=== PATIENT | male | born 1945 | race Caucasian/White ===

== ENCOUNTER → 2024-01-29 06:55 | Outpatient (REF) | payer OTHER, SELFPAY | LOC: RCS 06:55 | PROVIDERS: ATTENDING PHYSICIAN Internal Medicine Cardiovascular Disease; FAMILY PHYSICIAN Family Medicine | DX: I48.0 Paroxysmal atrial fibrillation (principal) | CPT/HCPCS: 93306 ==

== ENCOUNTER → 2024-02-07 10:22 | Outpatient (REF) | payer OTHER, SELFPAY | LOC: HWRAD 10:22 | PROVIDERS: ATTENDING PHYSICIAN Nurse Practitioner Family | DX: R10.11 Right upper quadrant pain (principal); R50.9 Fever, unspecified | CPT/HCPCS: 71046; 74177; Q9967 ==

== ENCOUNTER 2024-02-07 14:17 | Emergency (ER) | payer OTHER, SELFPAY ==
[2024-02-07 14:20] VITALS: BP 164/94
[2024-02-07 14:47] LABS: % Basophils 0.1 % (0-2); % Eosinophils 1.3 % (0-6); % Immature Granulocytes 0.4 % (0-0.5); % Lymphocytes 26.4 % (20.5-51.1); % Monocytes 6.1 % (1.7-9.3); % Neutrophils 65.7 % (42.2-75.2); Absolute Eosinophils 0.1 10^3/uL (0-0.7); Absolute Monocytes 0.5 10^3/uL (0.1-0.6); Hematocrit 40.1 % (39.0-52.0); Hemoglobin 13.4 g/dL (13.0-18.0); Mean Corp Hgb Conc. 33.4 g/dL (33.0-37.0); Mean Corpuscular Hgb 29.8 pg (27.0-31.0); Mean Corpuscular Volume 89.3 fL (80.0-94.0); Mean Platelet Volume 9.4 fL (7.4-10.4); Nucleated Red Blood Cells % 0 % (-); Platelet Count 286 10^3/uL (130-400); Red Blood Cell Count 4.49 10^6/uL (4.70-6.10); White Blood Cell Count 7.5 10^3/uL (4.8-10.8)
[2024-02-07 15:21] LABS: ALT (SGPT) 28 U/L (0-50); AST (SGOT) 25 U/L (17-59); Alkaline Phosphatase 99 U/L (38-126); Blood Urea Nitrogen 18 mg/dl (9-20); Calcium 9.4 mg/dl (8.4-10.2); Carbon Dioxide 28 mmol/L (22-30); Chloride 96 mmol/L (98-107); Glucose 150 mg/dl (70-99); Lipase 109 U/L (23-300); Sodium 135 mmol/L (135-145); Total Bilirubin 0.8 mg/dl (0.2-1.3); Total Protein 7.2 g/dl (6.3-8.2); eGFR > 60.00
--- NOTE | 2024-02-07 16:07 | ED.GENMED ---
History of Present Illness
General
Chief Complaint: Abdominal Symptoms
Source: patient
Exam Limitations: none
Time Seen by Provider: 02/07/24 16:05
Nursing documentation reviewed up to this point in time: agreed with
History of Present Illness
History of Present Illness:
78-year-old male with history of HTN, GERD, appendectomy, kidney stones called by his PCP and told to come to the ER as he had an outpatient abdominal CAT scan with IV and p.o. contrast earlier today and told he has gallbladder disease. He has had
waxing and waning RUQ pain since 01/04. Has low grade fevers (temp max 100.2) at night with intermittent chills. Also, intermittent diarrhea.
Saw UC on 01/05, given Bentyl and Bactrim. After finishing them, developed fever and chills again along with diarrhea. PCP put him on 10 days Cipro 1000 mg BID and he is on day 8. Also taking probiotic.
During all this, he was found to be in A fib and had echocardiogram last week
Past History
Past History
ED Past Medical History: GERD, HTN and Other (kidney stones)
ED Past Surgical History: Appendectomy and Orthopedic (Arthroscopic knee surgery)
Social History
Tobacco: Non-smoker
Alcohol: None
Drug: None
Personal:
Living: with family
Employment: Employed
Family History
Family History: Other (Noncontributory)
Review of Systems
Review of Systems
Allergies reviewed?: Yes
All Other Systems: ROS reviewed and negative except as documented in HPI and ROS
Constitutional: Reports fever (low grade intermittently, none today)
Respiratory: Denies trouble breathing
Cardiac: Denies chest pain
ABD/GI: Reports abdominal pain (past month waxing and waning, no pain at this time) and diarrhea; Denies nausea, vomiting, bloody stools or black stools
: Denies dysuria, frequency, difficulty voiding or urgency
Musculoskeletal: Denies edema
Skin: Reports no symptoms
Neurological: Reports no symptoms
Phy Exam
General Physical Exam
General Presentation: well appearing and no apparent distress
General age: appears stated age
General Skin: warm and dry
General Habitus: normal
General Mental: alert
General Hydration: appears well hydrated
Cardiovascular Exam
Cardiovascular Exam: regular rate/rhythm and no edema
Heart Sounds: normal
Pulmonary Exam
Pulmonary Exam: lungs clear
Gastrointestinal Exam
Gastrointestinal Exam: normal bowel sounds, non tender and soft (obese)
Neurological Exam
Neurological Exam: alert and oriented x3
Musculoskeletal Exam
Musculoskeletal Exam: no edema
Skin Exam
Skin Exam: normal color and warm/dry
Psychiatric Exam
Psychiatric Exam: normal mood/affect
Course
Orders/Labs/Results
Orders:
Orders
02/07/24 14:29
Complete Blood Count/With Diff Urgent
Comprehensive Metabolic Panel Urgent
Lipase Urgent
Abnormal Lab Results
02/07/24
14:29
RBC 4.49 L 10^6/uL
(4.70-6.10)
Chloride 96 L mmol/L
(98-107)
Glucose 150 H mg/dl
(70-99)
02/07/24 14:29
02/07/24 14:29
Vital Signs
Initial and Last Documented VS:
Initial Vital Signs
Temp Pulse Resp BP Pulse Ox
98.4 F 78 16 164/94 98
02/07/24 14:20 02/07/24 14:20 02/07/24 14:20 02/07/24 14:20 02/07/24 14:20
Last Documented Vital Signs
Temp Pulse Resp BP Pulse Ox
98.0 F 71 18 146/89 99
02/07/24 16:49 02/07/24 16:49 02/07/24 16:49 02/07/24 16:49 02/07/24 16:49
MDM/Problems Addressed
Differential Diagnosis Includes:
acute cholecystitis,
MDM/Problems Addressed:
78-year-old male with history of HTN, GERD, appendectomy, kidney stones called by his PCP and told to come to the ER as he had an outpatient abdominal CAT scan with IV and p.o. contrast earlier today and told he has gallbladder disease
CAT scan abdomen pelvis with p.o. and IV contrast done as an outpatient earlier today radiology report read: IMPRESSION:
1. Severe gallbladder wall thickening and adjacent inflammatory change. Radiopacity in the region of the gallbladder neck, likely representing a gallstone. Overall, findings are most suggestive of acute cholecystitis. No biliary ductal dilation is
appreciated.
2. Gallbladder wall asymmetrically thickened, and gallbladder neoplasm not excluded.
3. Right adrenal nodule, prior study, likely benign.
4. Bilateral nephrolithiasis without hydronephrosis.
4:00 PM
CBC unremarkable
CMP unremarkable
Lipase within normal limits
Consulted Dr. Jackson who agrees since pt is pain free, abdomen benign, labs normal, afebrile, on Eliquis, pt OK to go home and he will have someone call pt on Saturday (3 days) for appointment to set up surgery. Recommends continuing Eliquis as
earliest surgery may be Saturday (7 days).
Pt is very comfortable with this plan.
Return symptoms discussed
Pt ambulated out with normal gait at discharge
Chronic conditions affecting care: CAD
*Critical Care Note
Total Time (30-74mins, 75-104mins- exclusive of procedures): Not Applicable
ED Attending Note
-
Portions of this chart may have been created with voice recognition software.� Occasional wrong word or��sound alike� substitutions may have occurred due to the inherent limitations of voice recognition software.
Discharge Plan
Departure
Patient Disposition: Home (Routine Discharge)
Date of Disposition: 02/07/24
Time of Disposition: 16:50
Patient with high blood pressure during this ER visit?: No
Condition: Good
Discharge Problem:
Cholecystitis
Instructions: Gallstones (DC), Abdominal Pain
Prescriptions:
No Action
potassium gluconate 99 MG tablet
99 mg PO HS
ascorbic acid (vitamin C) [Vitamin C] 1,000 MG tablet
2,000 mg PO DAILY
B Complex Tablet Extended Release
1 tab PO DAILY Qty: 0
Centrum Silver 1 EACH tablet
1 ea PO DAILY
ciprofloxacin HCl 500 mg tablet
500 mg PO Q12H
losartan-hydrochlorothiazide 100-25 mg tablet
1 tab PO DAILY
metoprolol succinate 25 mg tablet extended release 24 hr
12.5 mg PO DAILY
azelastine 137 mcg (0.1 %) spray,non-aerosol
1 spray INTRANASAL BIDPRN PRN (Reason: congestion)
rosuvastatin 10 mg tablet
10 mg PO DAILY
Saccharomyces boulardii [Florastor] 250 mg Capsule
250 mg PO BID
Eliquis 5 mg tablet
5 mg PO BID
amlodipine 10 MG tablet
10 mg PO HS
metoprolol succinate 25 MG tablet extended release 24 hr
25 mg PO HS
Referrals:
Aristeo Jackson MD [Active] - Keep scheduled appt
Activity Restrictions/Additional Instructions:
As we discussed, since you are pain-free, your blood work is normal, and Dr. Jackson the surgeon is aware of your situation, I am going to discharge you today and he will have someone from his office call you Saturday for an appointment. He recommends
that you stay on your Eliquis until he discusses with you when your surgery can be done.
Return here immediately for worsening abdominal pain, fever above 100.5 not relieved with Tylenol, vomiting or feeling sicker in any way
Finish your Ciprofloxacin prescription
Interventions
Interventions:
*Risk Screen - Suicide Last Done: 02/07/24 16:46
*General Assessment Last Done: 02/07/24 14:20
*Neglect/Abuse Screening Last Done: 02/07/24 16:46
*ED COVID-19 Vaccine History Last Done: 02/07/24 14:20
*Nursing Disposition Last Done: 02/07/24 17:25
BC-Eshfog-Rquqtplmxy Assessment Last Done: 02/07/24 16:47
Discharge Date and Time
Discharge Date/Time: 02/07/24 18:04
Print Language: KAZAKH
[2024-02-07 16:45] VITALS: BMI 33.5
[2024-02-07 16:49] VITALS: BP 146/89
== END 2024-02-07 18:04 | disposition home or self-care (01) ==
LOC: EMR 14:17
PROVIDERS: Emergency Medicine; EMERGENCY PHYSICIAN Emergency Medicine; FAMILY PHYSICIAN Family Medicine
DX: K81.9 Cholecystitis, unspecified (principal); I10 Essential (primary) hypertension; K21.9 Gastro-esophageal reflux disease without esophagitis; R50.9 Fever, unspecified; R19.7 Diarrhea, unspecified; I25.10 Atherosclerotic heart disease of native coronary artery without angina pectoris; Z79.01 Long term (current) use of anticoagulants; Z87.442 Personal history of urinary calculi; Z90.49 Acquired absence of other specified parts of digestive tract
CPT/HCPCS: 99283; 71046; 74177; 80053; 83690; 85025; Q9967

== ENCOUNTER → 2024-02-18 08:26 | Outpatient (REF) | payer OTHER, SELFPAY | LOC: MRI 3T 08:26 | PROVIDERS: ATTENDING PHYSICIAN Surgery; FAMILY PHYSICIAN Family Medicine | DX: C23 Malignant neoplasm of gallbladder (principal) | CPT/HCPCS: 74181 ==

== ENCOUNTER 2024-03-09 13:25 | Inpatient (IN) | payer OTHER, SELFPAY ==
[2024-03-09] VITALS (15 sets, daily range): BP systolic 70–156; BP diastolic 62–93; BMI 32.3
[2024-03-09 09:31] LABS: Glucose - Point of Care 151 mg/dl (70-99)
[2024-03-09] MEDS: TYLENOL 1000 MG PO (09:34)
[2024-03-09] MEDS: IC GREEN 2.5 MG IV (09:51)
--- NOTE | 2024-03-09 12:06 | W.IMMPOSTOP ---
Surgical Immed Post Op Note
-
Primary Surgeon: Renetta
Assisting Surgeon: Tico
Chlorine Cells Operator: Yelena MARLOW
Pre-op Diagnosis: Chronic cholecystitis
Post-op Diagnosis: Same
Procedure Performed: Robot assisted laparoscopic subtotal cholecystectomy
Anesthesia Type: GETA
Specimen / Cultures: Bile for culture
Estimated Blood Loss: 35cc
Complications: None immediate
Operative Findings: Severely thickened wall and dense omental and colonic adhesions to anterior gallbladder wall. Gallbladder essentially encased in dense fibrotic scar. The thickness and tenacity of the adhesions prevented safe exposure of the
anterior wall. The fundus was opened and the large single stone was extracted and removed from the abdomen. 19fr schmitt drain into the gallbladder remnant.
--- NOTE | 2024-03-09 12:08 | OR.RPT ---
Addendum entered and electronically signed by Aristeo Jackson MD 03/09/24 14:32:
Addendum: Procedure: add modifier 22; Dr Doshi placed an employment assistant 5mm port and assisted with exposure and retraction.
Original Note:
Operative Report
Operative Report
Primary Surgeon: Renetta
Assisting Surgeon: Tico
Claims Specialist: Yelena MARLOW
Pre-op Diagnosis: Chronic cholecystitis
Post-op Diagnosis: Same
Procedure Performed: Robot assisted laparoscopic subtotal cholecystectomy
Anesthesia Type: GETA
Specimen / Cultures: Bile for culture
Estimated Blood Loss: 35cc
Complications: None immediate
Operative Findings: Severely thickened wall and dense omental and colonic adhesions to anterior gallbladder wall. Gallbladder essentially encased in dense fibrotic scar. The thickness and tenacity of the adhesions prevented safe exposure of the
anterior wall. The fundus was opened and the large single stone was extracted and removed from the abdomen. 19fr schmitt drain into the gallbladder remnant.
Date of Surgery:� 03/09/24
Indications: This 78M developed biliary colic with normal liver enzymes and without ductal dilation. He was on oral antibiotics for several weeks as an outpatient prior to surgery, with suspicion for smoldering chronic cholecystitis. Laparoscopic
cholecystectomy with robotic assist was elected.
Description of procedure: The patient was placed on the operating table in the supine position. General anesthesia was induced. A time-out was completed verifying correct patient, procedure, site, positioning, and special equipment prior to
beginning this procedure. An orogastric tube was placed. The abdomen was prepped and draped in the usual sterile fashion. A stab incision was made in left upper quadrant and the Veress needle was inserted. Proper position was confirmed by aspiration
and saline meniscus test. The abdomen was insufflated with carbon dioxide to a pressure of 12mmHg. The patient tolerated insufflation well.
A 8mm trocar was then inserted above the umbilicus. The laparoscope was inserted and the abdomen inspected. No injuries from initial trocar placement or Veress needle insertion were noted. Additional 8mm trocars were then inserted in the following
locations: two in the right lower quadrant and to the left of the umbilicus and just above. The abdomen was inspected and no abnormalities were found. The table was placed in the reverse Trendelenburg position with the right side up. The gallbladder
fundus was totally encased in dense scar tissue. The liver edge was identified and a top-down approach was begun. The posterior plane was obliterated with very thick fibrotic scar tissue. Seeral attempts were made to safely dissect out the
infundibulum but ultimately it was deemed unsafe to proceed in this manner. The fundus was then opened and a moderate amount of pus and bile drained. This was suctioned and irrigated. A large gallstone was extracted from the gallladder, placed into
an endoscopic retrieval bag and removed from the abdomen. The gallbladder was copiously irrigated until no further evidence of purulence was visible.
A 19fr syeda drain was placed into the gallbladder lumen and brought out through the lateral site and secured at the skin with 2-0 nylon suture.
The patient tolerated the procedure well and was taken to the postanesthesia care unit in stable condition.
The assistance of Yelena TURCIOS was required due to the complexity of the procedure. During the procedure she assisted with retraction, resection, and closure of the wound.
--- NOTE | 2024-03-09 12:13 | W.PN.UPDATE ---
Update Note
Progress Note Update
Plan for NPO @ [facility] for possible ERCP and stenting tomorrow. GI notified.
--- NOTE | 2024-03-09 12:27 | SUR.PHASEI ---
Rec'd unresponsive in bed with HOB elevated midfowlers oral airway in mg well
[2024-03-09 12:35] LABS: Glucose - Point of Care 187 mg/dl (70-99)
[2024-03-09] MEDS: DEMEROL 12.5 MG IV (12:35)
--- NOTE | 2024-03-09 12:36 | SUR.PHASEI ---
Airway out mg kc, calling out rolling around in bed oriented x 3 by RN reassured, to medicate
--- NOTE | 2024-03-09 12:49 | SUR.PHASEI ---
switching between agitated and snoring, Dr Boswell in, report to Duran Monge
--- NOTE | 2024-03-09 13:19 | SUR.PHASEI ---
Pt. RAAS of +2 agitated rolling around in bed and screaming. Pt. will open eyes to command but disoriented to time and situation. Pt. screaming of ABD pain with belly round firm and distended, MD Jackson aware and was at bedside earlier. MD Castelan
made aware of patient pain and request to hold off on narcotic with concern for patients mental status and increasing oxygen requirement. MD Castelan also request to hold off on CB coverage during this acute time. Pt. failed RA trial and was
titrated up to 6L NC to maintain SaO2 above 94%.
[2024-03-09] MEDS: DILAUDID 0.5 MG IV ×2 (13:42→14:23)
--- NOTE | 2024-03-09 15:18 | CON.GI ---
Addendum entered and electronically signed by Mindi Moore MD 03/09/24 20:36:
I saw and examined the patient.
The ASSISTANT DIRECTOR OF PLANT OPERATIONS's note was reviewed and I agree with the note.
Discussed with - Surgery. Patient with hx of chronic cholecystitis - had a laparoscopic fenestrated subtotal cholecystectomy due to severe adhesions. Drain was placed. GI was consulted for ERCP + sphincterotomy + stenting to reduce bile
leakage
plan
NPO
am labs
continue antibiotics as per surgery
pain mx as per surgery
continue to hold Eliquis
ERCP tomorrow - discussed with patient.
Original Note:
Consultation
-
Date/Time Consultation Requested: 03/09/24 1201
Date/Time Consultation Performed: 03/09/24 1530
Requesting Provider: Dr Jackson
Performing Provider: Dr Moore / Mary Dempsey PA-C
Reason for Consultation: s/p subtotal cholecystectomy/plan for ERCP
Medical History
Chief Complaint / HPI
Chief Complaint: abdominal pain, s/p subtotal CCY
History of Present Illness:
This is a 78 year old male with a past medical history of atrial fibrillation (on Eliquis, currently HELD), HTN, kidney stones, GERD, who underwent laparoscopic subtotal cholecystectomy today 03/09/[address] Jackson. Acute cholecystitis was noted on
CT scan done in the ER on 02/07/24 and patient was discharged at that time with plan for elective cholecystectomy. He was treated with oral antibiotics for several weeks as an outpatient prior to surgery, with concern for smoldering chronic
cholecystitis. Per the operative report, there were multiple adhesions present and the gallbladder was encased in dense fibrotic scar. A large single stone was extracted after incision of the fundus, with copious irrigation, and drain was
subsequently placed into the gallbladder remnant. We are asked to consult for possible ERCP for decompression to reduce bile leakage.
Patient complains of pain post-operatively, both in his abdomen and right shoulder. No nausea, vomiting, fever or chills. He has a history of GERD which is well-controlled on famotidine.
Past Medical History
Past Medical History: Other (atrial fibrillation, HTN, kidney stones, GERD)
Past Surgical History: Appendectomy, Cholecystectomy (laparascopic subtotal cholecystectomy 03/09/24) and Orthopedic (knee)
Social History
Tobacco: Non-Smoker
Alcohol: None
Drug: None
Personal:
Living: With Family
Employment: Employed
Family History
Family History: Other (No family history of GI malignancies)
Allergies / Home Medications
Allergy/AdvReac Type Severity Reaction Status Date / Time
No Known Allergies Allergy Verified 03/09/24 08:57
�Medication �Instructions �Recorded
potassium gluconate 600 mg (99 mg) 99 mg PO HS 10/17/15
tablet
ascorbic acid (vitamin C) 1,000 mg 2,000 mg PO DAILY 08/12/18
tablet (Vitamin C)
fipjyaft-cen-hotda acid 0.4 1 ea PO DAILY 08/12/18
mg-lycopene 300 mcg-lutein 250 mcg
tablet (Centrum Silver)
vitamin B complex 1 tab PO DAILY ##0 08/12/18
amlodipine 10 mg tablet 10 mg PO HS 02/07/24
apixaban 5 mg tablet (Eliquis) 5 mg PO BID 02/07/24
azelastine 137 mcg (0.1 %) nasal 1 spray intranasal BIDPRN PRN 02/07/24
spray congestion
losartan 100 1 tab PO DAILY 02/07/24
mg-hydrochlorothiazide 25 mg tablet
metoprolol succinate 25 mg 12.5 mg PO DAILY 02/07/24
tablet,extended release 24 hr
metoprolol succinate 25 mg 25 mg PO HS 02/07/24
tablet,extended release 24 hr
rosuvastatin 10 mg tablet 10 mg PO DAILY 02/07/24
acetaminophen 500 mg tablet 1,000 mg PO Q6H PRN pain 03/03/24
(Tylenol Extra Strength)
amoxicillin 875 mg-potassium 1 tab PO Q12H 03/03/24
clavulanate 125 mg tablet
ascorbic acid 125 mg-collagen, 1 cap PO BID 03/03/24
hydrolyzed 740 mg capsule
(Collagen Plus Vitamin C)
ttjvcfo-ilblgtiwj-ytba 1 tab PO BID 03/03/24
famotidine 20 mg tablet 20 mg PO QPM 03/03/24
fluticasone propionate 50 1 spray intranasal BID 03/03/24
mcg/actuation nasal
spray,suspension
glucosamine sulf dipot 1 cap PO DAILY 03/03/24
chlr,msm,chond 550 mg-C 30 mg-darya
1 mg capsule (Glucosamine
Chondroitin)
glucosamine sulfate 500 mg tablet 500 mg PO DAILY 03/03/24
(Glucosamine)
meloxicam 15 mg tablet 15 mg PO DAILY PRN pain 03/03/24
metformin 500 mg tablet 750 mg PO .DINNER 03/03/24
Review of Systems
-
History Source: Patient
All other systems: A 12 pt ROS was Negative except as stated above in HPI
Vital Signs
Temp Pulse Resp BP Pulse Ox
97.6 F 81 18 150/78 95
03/09/24 15:05 03/09/24 15:05 03/09/24 15:05 03/09/24 15:05 03/09/24 15:05
Physical Exam
Exam
General: Well Developed, Well Nourished and Pain
Respiratory: Clear
Cardiac: Regular Rhythm
GI: Soft, Non Distended, Normal Bowel Sounds and Other (+surgical drain in place in the right upper quadrant, incisions are clean/dry/without evidence of infection)
Skin: Warm and Dry
Neuro: AO x 3
Psych: Calm
Results
Diagnostic Image Results:
02/18/24 MRI Abdomen:
Ovoid gallstone at the junction of the body and neck of the gallbladder.
Significant gallbladder wall thickening involving the body and gallbladder fundus. Differential considerations of cholecystitis and/for gallbladder cancer, and there could be a combination of these processes.
There is no MR evidence for invasion of the gallbladder into the liver. The thickened gallbladder wall extends to the right anterolateral margin of the abdominal wall, there appears to be some thickening of the peritoneum adjacent to the
gallbladder. No evidence for invasion of the adjacent right anterolateral abdominal wall.
There are multiple hepatic lesions compatible with hepatic cysts. No convincing MR evidence for hepatic metastatic disease.
Right adrenal gland adenoma which is stable since examination of October 2015. Of note, imaging studies do not address the functional status of an adrenal mass. If there are clinical signs or symptoms of adrenal hyperfunction, biochemical testing may
be required to determine if the lesion is excreting excess hormone.
02/07/24 CT Abdomen/Pelvis:
1. Severe gallbladder wall thickening and adjacent inflammatory change. Radiopacity in the region of the gallbladder neck, likely representing a gallstone. Overall, findings are most suggestive of acute cholecystitis. No biliary ductal dilation is
appreciated.
2. Gallbladder wall asymmetrically thickened, and gallbladder neoplasm not excluded.
3. Right adrenal nodule, prior study, likely benign.
4. Bilateral nephrolithiasis without hydronephrosis.
OPERATIVE REPORT: 03/09/24
Pre-op Diagnosis: Chronic cholecystitis
Post-op Diagnosis: Same
Procedure Performed: Robot assisted laparoscopic subtotal cholecystectomy
Anesthesia Type: GETA
Specimen / Cultures: Bile for culture
Estimated Blood Loss: 35cc
Complications: None immediate
Operative Findings: Severely thickened wall and dense omental and colonic adhesions to anterior gallbladder wall. Gallbladder essentially encased in dense fibrotic scar. The thickness and tenacity of the adhesions prevented safe exposure of the
anterior wall. The fundus was opened and the large single stone was extracted and removed from the abdomen. 19fr schmitt drain into the gallbladder remnant.
Date of Surgery:� 03/09/24
Indications: This 78M developed biliary colic with normal liver enzymes and without ductal dilation. He was on oral antibiotics for several weeks as an outpatient prior to surgery, with suspicion for smoldering chronic cholecystitis. Laparoscopic
cholecystectomy with robotic assist was elected.
Description of procedure: The patient was placed on the operating table in the supine position. General anesthesia was induced. A time-out was completed verifying correct patient, procedure, site, positioning, and special equipment prior to
beginning this procedure. An orogastric tube was placed. The abdomen was prepped and draped in the usual sterile fashion. A stab incision was made in left upper quadrant and the Veress needle was inserted. Proper position was confirmed by aspiration
and saline meniscus test. The abdomen was insufflated with carbon dioxide to a pressure of 12mmHg. The patient tolerated insufflation well.
A 8mm trocar was then inserted above the umbilicus. The laparoscope was inserted and the abdomen inspected. No injuries from initial trocar placement or Veress needle insertion were noted. Additional 8mm trocars were then inserted in the following
locations: two in the right lower quadrant and to the left of the umbilicus and just above. The abdomen was inspected and no abnormalities were found. The table was placed in the reverse Trendelenburg position with the right side up. The gallbladder
fundus was totally encased in dense scar tissue. The liver edge was identified and a top-down approach was begun. The posterior plane was obliterated with very thick fibrotic scar tissue. Seeral attempts were made to safely dissect out the
infundibulum but ultimately it was deemed unsafe to proceed in this manner. The fundus was then opened and a moderate amount of pus and bile drained. This was suctioned and irrigated. A large gallstone was extracted from the gallladder, placed into
an endoscopic retrieval bag and removed from the abdomen. The gallbladder was copiously irrigated until no further evidence of purulence was visible.
A 19fr syeda drain was placed into the gallbladder lumen and brought out through the lateral site and secured at the skin with 2-0 nylon suture.
The patient tolerated the procedure well and was taken to the postanesthesia care unit in stable condition.
Prior GI Procedures:
EGD: ?
Colonoscopy:
~2018, possibly showed a polyp (done elsewhere)
2011, Dr. Avila:
One 3 mm polyp in the rectum. Resected and retrieved. (Hyperplastic)
- The examination was otherwise normal.
Assessment / Plan
-
78 year old male with a past medical history of atrial fibrillation (on Eliquis, currently HELD), HTN, kidney stones, GERD, who underwent laparoscopic subtotal cholecystectomy today 03/09/[address] Jackson. Acute cholecystitis was noted on CT scan
done in the ER on 02/07/24 and patient was discharged at that time with plan for elective cholecystectomy. He was treated with oral antibiotics for several weeks as an outpatient prior to surgery, with concern for smoldering chronic cholecystitis. Per
the operative report, there were multiple adhesions present and the gallbladder was encased in dense fibrotic scar. A large single stone was extracted after incision of the fundus, with copious irrigation, and drain was subsequently placed into the
gallbladder remnant. We are asked to consult for possible ERCP for decompression to reduce bile leakage.
IMPRESSION / PLAN:
H/o cholecystitis, s/p subtotal cholecystectomy today 03/09/24
- will plan for ERCP with stenting tomorrow with Dr. Moore for decompression, to reduce bile leak
- continue to hold Eliquis
- NPO after midnight for planned procedure tomorrow at noon
- order routine labs: CBC, CMP, PT/INR
- antibiotics and pain control per Surgery
-
-
Thank you for consultation and allowing me to participate in the patient's care. Please call the [facility] physician during the after hours with any questions or concerns.
[2024-03-09] MEDS: ZOSYN 50 IV ×2 (17:14→22:54)
[2024-03-09] MEDS: PEPCID 20 MG PO (17:15)
[2024-03-09] MEDS: ROXICODONE 10 MG PO ×2 (17:15→22:53)
[2024-03-09] MEDS: GLUCOPHAGE XR EXTENDED RELEASE 750 MG PO (18:12)
[2024-03-09] MEDS: ZOFRAN 4 MG IV (18:20)
[2024-03-09] MEDS: ROXICODONE 5 MG PO (20:40)
[2024-03-09] MEDS: KCL 10 MEQ PO (22:53)
[2024-03-09] MEDS: TOPROL XL 25 MG PO (22:53)
[2024-03-10] VITALS (16 sets, daily range): BP systolic 30–156; BP diastolic 62–99
[2024-03-10] MEDS: DILAUDID 0.25 MG IV (00:20)
[2024-03-10] MEDS: ZOSYN 50 IV ×4 (03:49→22:03)
[2024-03-10] MEDS: ROXICODONE 10 MG PO (03:53)
[2024-03-10 07:21] LABS: % Basophils 0.2 % (0-2); % Eosinophils 0.1 % (0-6); % Immature Granulocytes 0.5 % (0-0.5); % Lymphocytes 5.2 % (20.5-51.1); % Monocytes 4.2 % (1.7-9.3); % Neutrophils 89.8 % (42.2-75.2); Absolute Immature Granulocytes 0.1 10^3/uL (0-0.05); Absolute Monocytes 0.8 10^3/uL (0.1-0.6); Absolute Neutrophils 16.3 10^3/uL (1.4-6.5); Hematocrit 41.1 % (39.0-52.0); Hemoglobin 13.9 g/dL (13.0-18.0); Mean Corp Hgb Conc. 33.8 g/dL (33.0-37.0); Mean Corpuscular Volume 88.8 fL (80.0-94.0); Mean Platelet Volume 9.7 fL (7.4-10.4); Nucleated Red Blood Cells % 0 % (-); Platelet Count 240 10^3/uL (130-400); Red Blood Cell Count 4.63 10^6/uL (4.70-6.10); Red Cell Dist. Width 15.2 % (11.5-14.5); White Blood Cell Count 18.1 10^3/uL (4.8-10.8)
[2024-03-10 07:28] LABS: INR 1.12; PT 14.2 Sec (11.4-14.6)
[2024-03-10 08:19] LABS: ALT (SGPT) 34 U/L (0-50); AST (SGOT) 33 U/L (17-59); Albumin 4.3 g/dl (3.5-5.0); Alkaline Phosphatase 64 U/L (38-126); Blood Urea Nitrogen 24 mg/dl (9-20); Calcium 9.8 mg/dl (8.4-10.2); Carbon Dioxide 27 mmol/L (22-30); Chloride 99 mmol/L (98-107); Estimated Creatinine Clearance 72 ml/min; Glucose 260 mg/dl (70-99); Lipase 55 U/L (23-300); Potassium 4.1 mmol/L (3.5-5.1); Sodium 139 mmol/L (135-145); Total Bilirubin 2.2 mg/dl (0.2-1.3); Total Protein 7.3 g/dl (6.3-8.2); eGFR > 60.00
[2024-03-10] MEDS: CRESTOR 10 MG PO (09:21)
[2024-03-10] MEDS: TOPROL XL 12.5 MG PO (09:22)
[2024-03-10] MEDS: HYZAAR 100-25 TABLET 1 TAB PO (09:23)
[2024-03-10 12:49] LABS: Glucose - Point of Care 234 mg/dl (70-99)
[2024-03-10] MEDS: NOVOLOG vial 1 UNITS SC (13:05)
--- NOTE | 2024-03-10 16:07 | W.PN.SURGUPD ---
Surgical Update
Surgical Update
Patient seen and examined.
Reports feeling slightly improved. No worsening abdominal pain. Denies nausea or vomiting. Does have hiccups. Denies flatus or BMs. No fevers.
Gen: NAD
Resp: supplemental O2
Abd: obese, mild tenderness, distended, non-peritoneal. MANASA light bilious
Patient is a 78 yo M POD#1 s/p laparoscopic subtotal cholecystectomy c/b cystic duct leak PPD#0 s/p ERCP with sphincterotomy and plastic stent placement
No major concerns
-- Trial of clears
-- Zosyn
-- Continue MANASA drain
-- Appreciate GI help
--- NOTE | 2024-03-10 16:29 | CM ---
CM met with pt at bedside
Pt lives in a ranch style home with 2 steps to enter
Independent, driving
DME - cane, crutches, rolling walker
SNF/HH - no hx
PCP - Dr Mukul Ventura
Pharm - [facility]
Plan - anticipate home no needs vs w/HH when medically stable
[2024-03-10] MEDS: GLUCOPHAGE XR EXTENDED RELEASE 750 MG PO (17:21)
[2024-03-10] MEDS: LOVENOX 40 MG SC (17:22)
[2024-03-10] MEDS: PEPCID 20 MG PO (17:22)
[2024-03-10] MEDS: KCL 10 MEQ PO (21:58)
[2024-03-10] MEDS: TOPROL XL 25 MG PO (22:03)
[2024-03-11 03:34] VITALS: BP 133/64
[2024-03-11] MEDS: ZOSYN 50 IV ×4 (04:04→21:09)
[2024-03-11 07:00] VITALS: BP 149/77
[2024-03-11] MEDS: HYZAAR 100-25 TABLET 1 TAB PO (09:03)
[2024-03-11] MEDS: TOPROL XL 12.5 MG PO (09:06)
[2024-03-11] MEDS: CRESTOR 10 MG PO (09:07)
[2024-03-11 09:32] VITALS: BMI 32.3
[2024-03-11 09:38] VITALS: BMI 32.3
[2024-03-11 11:45] VITALS: BP 158/68
--- NOTE | 2024-03-11 12:10 | W.PN.GS2 ---
Today's Communication / Plan
-
Reg diet
Monitor drain
IV abx
DVT ppx
Ambulate
Assessment / Plan
-
78M POD2 s/p robo subtotal CCY for severe chronic cholecystitis, PPD1 s/p ERCP and stenting
Drain output dropping
Pt doing well, hungry, pain controlled
Plan to adv diet and monitor another 24 hours to ensure drain output continues to decline
Cont abx in the meantime, will likely need a 7 day course PO abx upon DC considering pus in the gb lumen intra-op
Most likely will keep the drain upon DC out of abundance of caution with a plan to DC in the office next week
Subjective Data
-
Date of Service: March 11, 2024
AFVSS, pain controlled, hungry, drain ourput decreasing
Objective Data
-
Intake and Output
03/10/24 03/11/24 03/12/24
06:59 06:59 06:59
Intake Total 480 / 480 1130 / 1130
Output Total 1610 / 1610 1175 / 1175 30 / 30
Balance -1130 / -1130 -45 / -45 -30 / -30
Intake:
Oral fluids 480 / 480 830 / 830
IV fluids (Total) 300 / 300
Normosol 300 / 300
Output:
Drain Output (Total) 335 / 335 275 / 275 30 / 30
Right Middle Abdomen Poli- 335 / 335 275 / 275 30 / 30
Duong
Urine, Voided 1275 / 1275 900 / 900
Vital Signs
Temp Pulse Resp BP Pulse Ox
98.3 F 73 17 158/68 96
03/11/24 07:00 03/11/24 09:03 03/11/24 07:00 03/11/24 11:45 03/11/24 07:00
Lab Results
03/10/24 06:50
03/10/24 06:50
Calcium 9.8 mg/dl (8.4-10.2) 03/10/24 06:50
Total Bilirubin 2.2 mg/dl (0.2-1.3) H 03/10/24 06:50
AST 33 U/L (17-59) 03/10/24 06:50
ALT 34 U/L (0-50) 03/10/24 06:50
Alkaline Phosphatase 64 U/L (38-126) 03/10/24 06:50
Total Protein 7.3 g/dl (6.3-8.2) 03/10/24 06:50
Albumin 4.3 g/dl (3.5-5.0) 03/10/24 06:50
Physical Exam
-
Gen: NAD
Abd: soft, minimal ttp, drain with scant bilious drainage
[2024-03-11 14:01] LABS: % Basophils 0.1 % (0-2); % Immature Granulocytes 0.9 % (0-0.5); % Lymphocytes 7.6 % (20.5-51.1); % Monocytes 4.1 % (1.7-9.3); % Neutrophils 87.3 % (42.2-75.2); Absolute Immature Granulocytes 0.1 10^3/uL (0-0.05); Absolute Lymphocytes 1.2 10^3/uL (1.2-3.4); Absolute Monocytes 0.7 10^3/uL (0.1-0.6); Absolute Neutrophils 14.2 10^3/uL (1.4-6.5); Hematocrit 36.3 % (39.0-52.0); Hemoglobin 12.2 g/dL (13.0-18.0); Mean Corp Hgb Conc. 33.6 g/dL (33.0-37.0); Mean Corpuscular Hgb 30.3 pg (27.0-31.0); Mean Corpuscular Volume 90.1 fL (80.0-94.0); Mean Platelet Volume 10.2 fL (7.4-10.4); Nucleated Red Blood Cells % 0 % (-); Platelet Count 206 10^3/uL (130-400); Red Blood Cell Count 4.03 10^6/uL (4.70-6.10); White Blood Cell Count 16.2 10^3/uL (4.8-10.8)
[2024-03-11 14:11] LABS: ALT (SGPT) 26 U/L (0-50); AST (SGOT) 30 U/L (17-59); Albumin 3.5 g/dl (3.5-5.0); Alkaline Phosphatase 51 U/L (38-126); Direct Bilirubin 0.1 mg/dl (0.0-0.4); Total Bilirubin 1.8 mg/dl (0.2-1.3); Total Protein 6.4 g/dl (6.3-8.2)
--- NOTE | 2024-03-11 14:23 | W.PN.GI.CBS2 ---
Addendum entered and electronically signed by Brigida Seymour MD 03/12/24 07:45:
will sign off,pls call with questions
Addendum entered and electronically signed by Brigida Seymour MD 03/11/24 18:22:
Error-resume AC 03/13/24 per post sphincterotomy
Addendum entered and electronically signed by Brigida Seymour MD 03/11/24 18:22:
Error-resume AC 03/12/24 per post sphincterotomy
Addendum entered and electronically signed by Brigida Seymour MD 03/11/24 18:21:
I saw and examined the patient.
The [employer] ARTIST or PA's note was reviewed and I agree with the note.
Comment: Pt reports mild discomfort in the abdomen, tolerating low fat diet
No BM yet
Abdomen-softly distended but not tender
-s/p ERCP with plastic stent placement for bile leak
LFT's trending down
Told LFD
Resume AC tomorrow
f/u OP with surgery
OP GI f/u and repeat EGD/ERCP in 8 weeks for stent removal.
One dose of Miralax for costipation
Original Note:
Today's Communication / Plan
-
as per plan
Assessment / Plan
-
78 year old male with a past medical history of atrial fibrillation (on Eliquis, currently HELD), HTN, kidney stones, GERD, who underwent laparoscopic subtotal cholecystectomy today 03/09/[address] Jackson. Acute cholecystitis was noted on CT scan
done in the ER on 02/07/24 and patient was discharged at that time with plan for elective cholecystectomy. He was treated with oral antibiotics for several weeks as an outpatient prior to surgery, with concern for smoldering chronic cholecystitis. Per
the operative report, there were multiple adhesions present and the gallbladder was encased in dense fibrotic scar. A large single stone was extracted after incision of the fundus, with copious irrigation, and drain was subsequently placed into the
gallbladder remnant. We are asked to consult for possible ERCP for decompression to reduce bile leakage.
ERCP 03/10/24 (Dr. Moore):
- The patient has had a subtotal fenestrated
cholecystectomy.
-- A bile leak was found.
- A biliary sphincterotomy was performed.
- The biliary tree was swept and nothing was found.
- One plastic stent was placed into the common bile
duct ( proximal end above the cystic duct insertion ) .
IMPRESSION / PLAN:
H/o cholecystitis, s/p subtotal cholecystectomy 03/09/24
Cystic duct leak s/p CBD Stent placement 03/10/24 (10 Fr 7 cm)
Plan:
-Continue low fat diet as tolerated
-Abx per Surgery
-Can check Abd XR at time of OV to see if stent still in place. If so will arrange for EGD/ERCP to remove stent at 8 weeks time.
-Continue to hold AC for another 48 hrs if ok with Cardiology.
-Will need to hold Eliquis prior to planned procedure (in 2 months) as outpatient if resumed.
-Follow up in the office as an outpatient on 03/26/24 at 11:30 with KAROLINA Cueto
Subjective
Subjective
Date of Service: March 11, 2024
Patient s/p robotic subtotal CCY for severe chronic cholecystitis 03/09/24 with cystic duct leak and ERCP with 10 Fr 7 cm plastic stent placement into CBD on 03/10/24. Patient tolerating low fat diet today. Less MANASA drainage today after CBD stenting.
Patient with light yellow urine. WBC and T Bili trending down.
Objective
Data Reviewed
Laboratory Data:
Laboratory Results
03/11/24 13:19
03/10/24 06:50
Laboratory Results
PT 14.2 Sec (11.4-14.6) 03/10/24 06:50
INR 1.12 03/10/24 06:50
Total Bilirubin 1.8 mg/dl (0.2-1.3) H 03/11/24 13:19
AST 30 U/L (17-59) 03/11/24 13:19
ALT 26 U/L (0-50) 03/11/24 13:19
Alkaline Phosphatase 51 U/L (38-126) 03/11/24 13:19
Lipase 55 U/L (23-300) 03/10/24 06:50
Vital Signs and I&O:
Vital Signs
Temp Pulse Resp BP Pulse Ox
98.3 F 73 17 158/68 96
03/11/24 07:00 03/11/24 09:03 03/11/24 07:00 03/11/24 11:45 03/11/24 07:00
I&O
03/10/24 03/11/24 03/12/24
06:59 06:59 06:59
Intake Total 480 / 480 1130 / 1130
Output Total 1610 / 1610 1175 / 1175 30 / 30
Balance -1130 / -1130 -45 / -45 -30 / -30
Physical Exam
Physical Exam
HEENT: Anicteric
Cardiology: Normal Sinus Rhythm
Pulmonary: Clear (anterior)
GI: Soft, Distended (mildly), Tender (mild tenderness (expected post op) ), Normal Bowel Sounds (few higher pitched) and Other (MANASA drain in place with small amounbt of bilious drainage, )
Extremities: No Edema
Neuro: Non Focal
[2024-03-11 15:00] VITALS: BP 142/81
--- NOTE | 2024-03-11 16:00 | CM ---
manager subway following for discharge planning
Chart reviewed
Poss d/c tomorrow
Plan - anticipate home no needs vs w/HH when medically stable
[2024-03-11 16:46] LABS: Glucose - Point of Care 202 mg/dl (70-99)
[2024-03-11] MEDS: GLUCOPHAGE XR EXTENDED RELEASE 750 MG PO (17:00)
[2024-03-11] MEDS: PEPCID 20 MG PO (17:01)
[2024-03-11] MEDS: LOVENOX 40 MG SC (17:01)
[2024-03-11] MEDS: MIRALAX 17 GRAMS PO (18:31)
[2024-03-11 19:58] VITALS: BP 163/80
[2024-03-11] MEDS: TOPROL XL 25 MG PO (21:08)
[2024-03-11] MEDS: KCL 10 MEQ PO (21:09)
[2024-03-11 23:50] VITALS: BP 144/73
[2024-03-12 03:13] VITALS: BP 145/72
[2024-03-12] MEDS: ZOSYN 50 IV ×2 (04:54→11:06)
[2024-03-12 05:54] LABS: Glucose - Point of Care 132 mg/dl (70-99)
[2024-03-12 07:42] VITALS: BP 159/82
[2024-03-12 07:52] LABS: Glucose - Point of Care 145 mg/dl (70-99)
[2024-03-12] MEDS: TOPROL XL 12.5 MG PO (08:42)
[2024-03-12] MEDS: HYZAAR 100-25 TABLET 1 TAB PO (08:42)
[2024-03-12] MEDS: CRESTOR 10 MG PO (08:42)
--- NOTE | 2024-03-12 09:20 | W.PN.GS2 ---
Today's Communication / Plan
-
`
Assessment / Plan
-
78M POD3 s/p robo subtotal CCY for severe chronic cholecystitis, PPD2 s/p ERCP and stenting for post op bile leak (expected with subtotal michelle)
AFVSS
MANASA remains bilious but lower/modest output on PO intake
Plan: stable to d/c home on low fat diet
maintain MANASA until bile leak resolved
7 day course PO abx upon DC considering pus in the gb lumen intra-op
follow up as outpt with dr barney
consult case management for drain care at home
Subjective Data
-
Date of Service: March 12, 2024
pt seen and examined
offers no complaints
mg PO
post op incisional pain controlled
no nausea; +fl/BM
Objective Data
-
Intake and Output
03/11/24 03/12/24 03/13/24
06:59 06:59 06:59
Intake Total 1130 / 1130 580 / 580
Output Total 1175 / 1175 1185 / 1185
Balance -45 / -45 -605 / -605
Intake:
Oral fluids 830 / 830 480 / 480
IV fluids (Total) 300 / 300 100 / 100
Normosol 300 / 300
Output:
Drain Output (Total) 275 / 275 110 / 110
Right Middle Abdomen Poli- 275 / 275 110 / 110
Duong
Urine, Voided 900 / 900 1075 / 1075
Vital Signs
Temp Pulse Resp BP Pulse Ox
98.4 F 64 17 159/82 98
03/12/24 07:42 03/12/24 07:42 03/12/24 07:42 03/12/24 07:42 03/12/24 07:42
Lab Results
08/07/24 13:19
03/10/24 06:50
Calcium 9.8 mg/dl (8.4-10.2) 03/10/24 06:50
Total Bilirubin 1.8 mg/dl (0.2-1.3) H 03/11/24 13:19
Direct Bilirubin 0.1 mg/dl (0.0-0.4) 03/11/24 13:19
AST 30 U/L (17-59) 03/11/24 13:19
ALT 26 U/L (0-50) 03/11/24 13:19
Alkaline Phosphatase 51 U/L (38-126) 03/11/24 13:19
Total Protein 6.4 g/dl (6.3-8.2) 03/11/24 13:19
Albumin 3.5 g/dl (3.5-5.0) 03/11/24 13:19
Physical Exam
-
NAD AAOx3
ABD: soft, protuberant, minimal incisional tenderness
MANASA bilious but not high output
--- NOTE | 2024-03-12 09:27 | W.DS.TRANS ---
Addendum entered and electronically signed by LINA Laureano 03/14/24 08:10:
dictated #[id number]
Original Note:
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
-
Discharge Instructions:
Sleep Apnea Risk High
Discharge Diagnosis/Procedures Chronic cholecystitis
Diet Low Fat,As tolerated
Activity No strenuous activity
Driving Restrictions As prior to admission
Bathing Restrictions OK to Shower
Wound Care take off any gauze around the drain before
showering, place clean dry gauze on after shower
. Alow skin glue to flake off on its own.
Instructions: Poli-Duong Drain
Cholecystectomy (DC)
Stand-Alone Forms:
Changes to Home Medications: No
Discharge Medications:
DC Medications w/original date entered in [employer]
potassium gluconate 600 mg (99 mg) tablet 99 mg PO HS Supplement 10/17/15
ascorbic acid (vitamin C) 1,000 mg tablet (Vitamin C) 2,000 mg PO DAILY Supplement 08/12/18
skqhjzpn-htn-lyxty acid 0.4 mg-lycopene 300 mcg-lutein 250 mcg tablet (Centrum Silver) 1 ea PO DAILY Supplement 08/12/18
vitamin B complex 1 tab PO DAILY Supplement ##0 08/12/18
amlodipine 10 mg tablet 10 mg PO HS blood pressure 02/07/24
apixaban 5 mg tablet (Eliquis) 5 mg PO BID Blood Clot Prevention/Tx 02/07/24
azelastine 137 mcg (0.1 %) nasal spray 1 spray intranasal BIDPRN PRN congestion 02/07/24
losartan 100 mg-hydrochlorothiazide 25 mg tablet 1 tab PO DAILY Blood Pressure 02/07/24
metoprolol succinate 25 mg tablet,extended release 24 hr 12.5 mg PO DAILY Blood Pressure 02/07/24
metoprolol succinate 25 mg tablet,extended release 24 hr 25 mg PO HS Blood Pressure 02/07/24
rosuvastatin 10 mg tablet 10 mg PO DAILY High Cholesterol 02/07/24
acetaminophen 500 mg tablet (Tylenol Extra Strength) 1,000 mg PO Q6H PRN pain 03/03/24
amoxicillin 875 mg-potassium clavulanate 125 mg tablet 1 tab PO Q12H infection 03/03/24
ascorbic acid 125 mg-collagen, hydrolyzed 740 mg capsule (Collagen Plus Vitamin C) 1 cap PO BID Supplement 03/03/24
opjvcrq-osjsozzgi-uzto 1 tab PO BID Supplement 03/03/24
famotidine 20 mg tablet 20 mg PO QPM Gastrointestinal Issue 03/03/24
fluticasone propionate 50 mcg/actuation nasal spray,suspension 1 spray intranasal BID allergies 03/03/24
glucosamine sulf dipot chlr,msm,chond 550 mg-C 30 mg-darya 1 mg capsule (Glucosamine Chondroitin) 1 cap PO DAILY Supplement 03/03/24
glucosamine sulfate 500 mg tablet (Glucosamine) 500 mg PO DAILY Supplement 03/03/24
meloxicam 15 mg tablet 15 mg PO DAILY PRN pain 03/03/24
metformin 500 mg tablet 750 mg PO .DINNER diabetes 03/03/24
amoxicillin 875 mg-potassium clavulanate 125 mg tablet 1 tab PO Q12 antibiotic #14 tabs 03/11/24
Home Medication Changes
Pending Results: No
--- NOTE | 2024-03-12 10:10 | CM ---
Case management following for discharge planning
CM consult for [facility]
Discussed with pt - agreeable to plan - prefers [facility]
TT sent to [facility] Liaison notified
Pt for discharge today
Has ride -
Discussed IMM
Plan - home with [facility]
[2024-03-12 11:15] VITALS: BP 139/69
--- NOTE | 2024-03-12 11:29 | VNURNOTE ---
Home Health Liaison met with patient at bedside to discuss [facility] nurse/therapy, visits, schedule and homebound status. Patient is agreeable and understands that visits at home will be 1-3 x per week to assess and teach medical management and MANASA care.
Liaison spoke with Nurse Zackary who confirmed he will show patient and spouse how to empty drain prior to DC. [facility] brochure provided with contact information. Patient is aware that [facility] will contact them for start of care within a few days after
discharge from .
[facility] referral completed in [facility].
[2024-03-12 11:47] LABS: Glucose - Point of Care 136 mg/dl (70-99)
== END 2024-03-12 13:48 | disposition home health service (06) | DRG 410 ==
LOC: 3 WEST ACU 13:25
PROVIDERS: Physician Assistant; ADMITTING PHYSICIAN Surgery; CONSULT PHYSICIAN Internal Medicine Gastroenterology; FAMILY PHYSICIAN Family Medicine
PROC: 0F798DZ Dilation of Common Bile Duct with Intraluminal Device, Via Natural or Artificial Opening Endoscopic (ICD-10-PCS; 2024-03-10)
PROC: 0FC44ZZ Extirpation of Matter from Gallbladder, Percutaneous Endoscopic Approach (ICD-10-PCS; 2024-03-10)
DX: K80.10 Calculus of gallbladder with chronic cholecystitis without obstruction (principal); K82.8 Other specified diseases of gallbladder; K66.0 Peritoneal adhesions (postprocedural) (postinfection); I10 Essential (primary) hypertension; E78.5 Hyperlipidemia, unspecified; E03.9 Hypothyroidism, unspecified; D35.01 Benign neoplasm of right adrenal gland; I48.91 Unspecified atrial fibrillation; K21.9 Gastro-esophageal reflux disease without esophagitis; Z79.01 Long term (current) use of anticoagulants; Z79.899 Other long term (current) drug therapy
CPT/HCPCS: 74330; 76000; 80053; 80076; 82962; 83690; 85025; 85610; 87070; 87075; 87077; 87186; 87205; 97162; C1769; C2625

== ENCOUNTER → 2024-05-11 06:20 | Day surgery (SDC) | payer OTHER, SELFPAY ==
[2024-05-11 07:54] LABS: Glucose - Point of Care 144 mg/dl (70-99)
== END ==
LOC: GI 06:20
PROVIDERS: ATTENDING PHYSICIAN Internal Medicine Gastroenterology; FAMILY PHYSICIAN Family Medicine
DX: Z46.59 Encounter for fitting and adjustment of other gastrointestinal appliance and device (principal)
CPT/HCPCS: 43247; 82962

== ENCOUNTER 2024-06-01 12:08 | Inpatient (IN) | payer OTHER, SELFPAY ==
[2024-06-01] VITALS (10 sets, daily range): BP systolic 98–190; BP diastolic 59–110; BMI 31.5; BMI 32.3
[2024-06-01 05:25] LABS: % Basophils 0.2 % (0-2); % Eosinophils 0.7 % (0-6); % Immature Granulocytes 0.2 % (0-0.5); % Monocytes 5.3 % (1.7-9.3); % Neutrophils 74.6 % (42.2-75.2); Absolute Eosinophils 0.1 10^3/uL (0-0.7); Absolute Lymphocytes 1.6 10^3/uL (1.2-3.4); Absolute Monocytes 0.5 10^3/uL (0.1-0.6); Absolute Neutrophils 6.4 10^3/uL (1.4-6.5); Hematocrit 45.8 % (39.0-52.0); Hemoglobin 15.3 g/dL (13.0-18.0); Mean Corp Hgb Conc. 33.4 g/dL (33.0-37.0); Mean Corpuscular Hgb 28.4 pg (27.0-31.0); Mean Platelet Volume 9.7 fL (7.4-10.4); Nucleated Red Blood Cells % 0 % (-); Platelet Count 196 10^3/uL (130-400); Red Blood Cell Count 5.39 10^6/uL (4.70-6.10); Red Cell Dist. Width 14.5 % (11.5-14.5); Urine Albumin 1+ (Neg - Trace); Urine Bilirubin Negative (Negative); Urine Character Clear (Clear); Urine Color Yellow; Urine Glucose Negative (Negative); Urine Ketone Negative (Negative); Urine Leukocyte Negative (Negative); Urine Nitrite Negative (Negative); Urine Occult Blood Negative (Negative); Urine Urobilinogen Negative (Neg - 1+); White Blood Cell Count 8.6 10^3/uL (4.8-10.8)
--- NOTE | 2024-06-01 05:32 | ED.GENMED ---
History of Present Illness
<Shruthi West DO - Last Filed: 06/01/24 06:21>
General
Chief Complaint: Abdominal Pain
Source: patient and previous hospital records (Previous hospitalization March of this year for treatment of chronic calculus cholecystitis, cholecystectomy complicated by bile leak requiring ERCP and stent placement)
Exam Limitations: none
Time Seen by Provider: 06/01/24 04:49
Nursing documentation reviewed up to this point in time: agreed with
History of Present Illness
History of Present Illness:
This is a 78-year-old gentleman with history of A-fib chronically maintained on Eliquis, hypertension, GERD, kidney stones, [id number] diabetes and hyperlipidemia. He also has history of chronic cholecystitis and underwent laparoscopic
subtotal cholecystectomy March of this year complicated by bile leak requiring ERCP with stent placement. Overall did well post procedure and underwent endoscopy May 11 for biliary stent removal. The stent was found in his duodenum and
retrieved without incident.
He woke up around midnight with abrupt onset of severe initially generalized abdominal pain accompanied with nausea and 2 episodes of vomiting. He states he also passed approximately 3 bowel movements initially hard and then became soft stools.
Abdominal pain has improved but has not completely resolved and is now primarily right upper quadrant/right upper lateral quadrant. He denies back pain or flank pain, no chest pain, no coughing or shortness of breath. He does admit to becoming
quite diaphoretic with abdominal pain but diaphoresis is since resolved. He did not take anything for his pain. He denies hematemesis nor hematochezia. No dysuria and urgency and or hematuria.
Past History
<Shruthi West DO - Last Filed: 06/01/24 06:21>
Past History
ED Past Medical History: Arrthythmia (Atrial fibrillation), GERD, HTN, Hypercholesterolemia, NIDDM and Other (kidney stones; cholecystitis with subtotal cholecystectomy March 2024)
ED Past Surgical History: Appendectomy, Cholecystectomy (Subtotal cholecystectomy March 09 2024. ERCP with stent placement March 10, 2024) and Orthopedic (Arthroscopic knee surgery)
Social History
Tobacco: Non-smoker
Alcohol: None
Drug: None
Personal:
Living: with family
Employment: Retired
Family History
Family History: Other (Noncontributory)
Phy Exam
<Shruthi West DO - Last Filed: 06/01/24 06:21>
Physical Exam
Physical Exam:
GENERAL: 78-year-old gentleman appears his stated age, awake and alert, pleasant, appears in no acute distress. Significant hypertension noted initially. Afebrile.
EYE: anicteric
NECK: Supple, nontender, no meningismus, no significant adenopathy.
ENT: oral mucosa is moist. No rhinorrhea.
CARDIAC: Regular rate and rhythm. no murmur.
LUNGS: Clear breath sounds bilaterally, no acute respiratory distress, no wheezes/rales/rhonchi
ABDOMEN: Rotund, soft, nondistended, mild tenderness with deep palpation only right upper quadrant, no r/g, no cvat. normoactive BS.
NEUROLOGICAL: Alert and oriented x3, no focal neuro deficits. Gait is steady.
SKIN: Warm and dry, normal color, skin intact. No rash.
MUSCULOSKELETAL: No C/C/E. peripheral pulses are full and equal b/l. No palpable tenderness.
PSYCH: Normal and appropriate interaction.
Course
<Shruthi West DO - Last Filed: 06/01/24 06:21>
Orders/Labs/Results
Orders:
Orders
06/01/24 04:53
IV Insert/Care/Rem.- Treatment PRN
06/01/24 05:12
Complete Blood Count/With Diff Urgent
Comprehensive Metabolic Panel Urgent
Glycohemoglobin (HgbA1c) Urgent
Lactic Acid Urgent
Lipase Urgent
Urinalysis Reflex To Culture Urgent
Date Specimen was Collected: 06/01/24
Time Specimen was Collected: 04:53
Urine Microscopic Reflex Cult Urgent
06/01/24 05:29
0.9% Sodium Chloride 1000 ml [Nss] 1,000 ml IV 200 mls/hr
HYDROmorphone [Dilaudid] 0.5 mg IV NOW STA
Ondansetron Injectable [Zofran] 4 mg IV NOW STA
06/01/24 05:40
CT Abd/pelvis W Iv Cont Urgent
Comment:
Reason For Exam: acute RUQ pain, N/V
06/01/24 Breakfast
NPO
Allow oral meds: No
Allow clear liquids: No
NPO with Ice Chips: No
06/01/24 06:16
0.9% Sodium Chloride 1000 ml [Nss] 1,000 ml IV BOLUS
06/01/24 07:53
HYDROmorphone [Dilaudid] 1 mg IV NOW STA
Piperacillin/Tazo 4.5 Gram [Zosyn] 4.5 gram in 100 ml IV NOW
06/01/24 08:08
Consult Surgery [SURGICAL CONSULT] Routine
Consulting Provider: Morgan Doshi
Was physician already notified: Yes
Reason for consult: RUQ abd pain hx subtotal cholecystectomy possible infectious cholangitis
06/01/24 08:48
Add On- LAB Routine
Tests Added?: A1c
HYDROmorphone [Dilaudid] 1 mg IV Q3HPRN PRN
06/01/24 08:49
Ketorolac [Toradol] 15 mg IV NOW STA
06/01/24 08:56
Consult Gastroenterology [GASTROINTESTINAL CONSULT] Routine
Consulting Provider: Brigida Seymour
Was physician already notified: Yes
Reason for consult: recent hx cholecystectomy bile leak stent remove new onset abd pain colicky
06/01/24 09:00
0.9% Sodium Chloride [Nss (Preservative Free)] 10 ml IV DAILY
Flush (0.9% Sodium Chloride) [Flush (Nss)] See Dose Instructions IV PER PROTOCOL
Pantoprazole [Protonix IV] 40 mg IV DAILY
06/01/24 12:00
Lactic Acid Routine
Abnormal Lab Results
06/01/24
05:12
Lymphocytes % 19.0 L %
(20.5-51.1)
BUN 23 H mg/dl
(9-20)
Glucose 192 H mg/dl
(70-99)
Lactic Acid 2.7 H mmol/L
(0.7-2.0)
Urine Bacteria (Reflex) Few A
(Negative)
Urine Albumin (Reflex) 1+ A
(Neg - Trace)
06/01/24 05:12
06/01/24 05:12
Vital Signs
Initial and Last Documented VS:
Initial Vital Signs
Temp Pulse Resp BP Pulse Ox
97.9 F 90 16 190/110 98
06/01/24 04:34 06/01/24 04:34 06/01/24 04:34 06/01/24 04:34 06/01/24 04:34
Last Documented Vital Signs
Temp Pulse Resp BP Pulse Ox
97.9 F 89 17 125/65 94
06/01/24 04:34 06/01/24 09:30 06/01/24 09:00 06/01/24 09:21 06/01/24 07:08
<Jimmy Garcia, DO - Last Filed: 06/01/24 09:54>
Orders/Labs/Results
Orders:
Orders
06/01/24 04:53
IV Insert/Care/Rem.- Treatment PRN
06/01/24 05:12
Complete Blood Count/With Diff Urgent
Comprehensive Metabolic Panel Urgent
Glycohemoglobin (HgbA1c) Urgent
Lactic Acid Urgent
Lipase Urgent
Urinalysis Reflex To Culture Urgent
Date Specimen was Collected: 06/01/24
Time Specimen was Collected: 04:53
Urine Microscopic Reflex Cult Urgent
06/01/24 05:29
0.9% Sodium Chloride 1000 ml [Nss] 1,000 ml IV 200 mls/hr
HYDROmorphone [Dilaudid] 0.5 mg IV NOW STA
Ondansetron Injectable [Zofran] 4 mg IV NOW STA
06/01/24 05:40
CT Abd/pelvis W Iv Cont Urgent
Comment:
Reason For Exam: acute RUQ pain, N/V
06/01/24 Breakfast
NPO
Allow oral meds: No
Allow clear liquids: No
NPO with Ice Chips: No
06/01/24 06:16
0.9% Sodium Chloride 1000 ml [Nss] 1,000 ml IV BOLUS
06/01/24 07:53
HYDROmorphone [Dilaudid] 1 mg IV NOW STA
Piperacillin/Tazo 4.5 Gram [Zosyn] 4.5 gram in 100 ml IV NOW
06/01/24 08:08
Consult Surgery [SURGICAL CONSULT] Routine
Consulting Provider: Morgan Doshi
Was physician already notified: Yes
Reason for consult: RUQ abd pain hx subtotal cholecystectomy possible infectious cholangitis
06/01/24 08:48
Add On- LAB Routine
Tests Added?: A1c
HYDROmorphone [Dilaudid] 1 mg IV Q3HPRN PRN
06/01/24 08:49
Ketorolac [Toradol] 15 mg IV NOW STA
06/01/24 08:56
Consult Gastroenterology [GASTROINTESTINAL CONSULT] Routine
Consulting Provider: Brigida Seymour
Was physician already notified: Yes
Reason for consult: recent hx cholecystectomy bile leak stent remove new onset abd pain colicky
06/01/24 09:00
0.9% Sodium Chloride [Nss (Preservative Free)] 10 ml IV DAILY
Flush (0.9% Sodium Chloride) [Flush (Nss)] See Dose Instructions IV PER PROTOCOL
Pantoprazole [Protonix IV] 40 mg IV DAILY
06/01/24 12:00
Lactic Acid Routine
Abnormal Lab Results
06/01/24
05:12
Lymphocytes % 19.0 L %
(20.5-51.1)
BUN 23 H mg/dl
(9-20)
Glucose 192 H mg/dl
(70-99)
Lactic Acid 2.7 H mmol/L
(0.7-2.0)
Urine Bacteria (Reflex) Few A
(Negative)
Urine Albumin (Reflex) 1+ A
(Neg - Trace)
06/01/24 05:12
06/01/24 05:12
Vital Signs
Initial and Last Documented VS:
Initial Vital Signs
Temp Pulse Resp BP Pulse Ox
97.9 F 90 16 190/110 98
06/01/24 04:34 06/01/24 04:34 06/01/24 04:34 06/01/24 04:34 06/01/24 04:34
Last Documented Vital Signs
Temp Pulse Resp BP Pulse Ox
97.9 F 89 17 125/65 94
06/01/24 04:34 06/01/24 09:30 06/01/24 09:00 06/01/24 09:21 06/01/24 07:08
<Shruthi West, DO - Last Filed: 06/01/24 06:21>
MDM/Problems Addressed
Differential Diagnosis Includes:
Concern for recurrent/residual cholecystitis, concern for common bile duct stone/common bile duct obstruction, concern for right ureteric stone/renal colic, small bowel obstruction, gastroenteritis, ischemic bowel.
Will medicate for pain and nausea, initiate IV fluids.
Will plan for labs, urinalysis and plan for CT abdomen and pelvis.
Chronic conditions affecting care: DM, HTN, Arrhythmia (Atrial fibrillation) and Previous abdomnial surgery
<Jimmy Garcia, DO - Last Filed: 06/01/24 09:54>
*Radiology
Radiology exam reviewed: radiology read reviewed (CT abdomen pelvis shows residual cholecystitis and inflammation in common bile duct)
*Pulse Oximetry
Patient hypoxic: no
*Critical Care Note
Total Time (30-74mins, 75-104mins- exclusive of procedures): Not Applicable
Data Reviewed
Review of Other/Old Records Reveals: Operative Reports (March 12, 2024 patient had partial laparoscopic cholecystectomy and CBD stent)
Source: records
<Jimmy Garcia, DO - Last Filed: 06/01/24 09:54>
Patient Management
Social determinants of health affecting care: Living situation
Discussion with other providers: Hospitalist and Communications Supervisor (General Surgery)
Escalation/DeEscalation of care consider admission/obs:
Admit indicated
<Shruthi West DO - Last Filed: 06/01/24 06:21>
Update Note
Update Note:
Labs are remarkable for mildly elevated lactic acid at 2.7.
Chemistries are otherwise unremarkable, CBC is unremarkable. Urinalysis is unremarkable.
Patient is currently comfortable after an IV dose of Dilaudid and Zofran.
CT is pending.
ED Attending Note
<Shruthi West DO - Last Filed: 06/01/24 06:21>
-
Portions of this chart may have been created with voice recognition software.� Occasional wrong word or��sound alike� substitutions may have occurred due to the inherent limitations of voice recognition software.
Discharge Plan
Departure
Patient Disposition: Admit
Date of Disposition: 06/01/24
Time of Disposition: 07:55
Admit to: Telemetry
Presentation/result/management discussed w/ accepting MD/DO: Hospitalist
Patient with high blood pressure during this ER visit?: Yes
Condition: Fair
Discharge Problem:
Cholecystitis
Prescriptions:
No Action
potassium gluconate 99 MG tablet
99 mg PO HS
ascorbic acid (vitamin C) [Vitamin C] 1,000 MG tablet
2,000 mg PO DAILY
vitamin B complex Tablet Extended Release
1 tab PO DAILY Qty: 0
Centrum Silver 1 EACH tablet
1 ea PO DAILY
azelastine 137 mcg (0.1 %) spray,non-aerosol
1 spray INTRANASAL BIDPRN PRN (Reason: congestion)
rosuvastatin 10 mg tablet
10 mg PO DAILY
amlodipine 10 MG tablet
10 mg PO HS
metoprolol succinate 25 MG tablet extended release 24 hr
25 mg PO HS
metformin 500 mg Tablet
750 mg PO QPM
Rx Instructions:
Takes 1 1/2 tablets with dinner
meloxicam 15 mg Tablet
15 mg PO DAILY PRN (Reason: pain)
acetaminophen [Tylenol Extra Strength] 500 mg Tablet
1,000 mg PO Q6HPRN PRN (Reason: MILD pain)
Collagen Plus Vitamin C 125-740 mg Capsule
1 cap PO BID
Glucosamine Chondroitin 550-30-1 mg Capsule
1 cap PO DAILY
famotidine 20 mg Tablet
20 mg PO QPM
calcium carb-mag ox-zinc gluc 333-133-5 mg Tablet
1 tab PO DAILY Qty: 0
coenzyme Q10 [Co Q-10] 100 mg Capsule
100 mg PO DAILY
losartan-hydrochlorothiazide 100-25 mg Tablet
1 tab PO DAILY
Eliquis 5 mg Tablet
5 mg PO BID
Referrals:
Mukul Lozoya MD [Family Provider] -
Interventions
Interventions:
*Risk Screen - Suicide Last Done: 06/01/24 04:34
*General Assessment Last Done: 06/01/24 04:34
*Neglect/Abuse Screening Last Done: 06/01/24 04:34
ED- Fall Risk Assessment Last Done: 06/01/24 04:55
*ED COVID-19 Vaccine History Last Done: 06/01/24 04:55
CT-Shrdmj-Nibwoojmaa Assessment Last Done: 06/01/24 07:09
Discharge Date and Time
Print Language: CHILEAN
[2024-06-01 05:35] LABS: Urine Bacteria Few (Negative); Urine Red Blood Cell 0-2 /HPF (0-2); Urine Squamous Cell 0-2 /LPF (Few); Urine White Cell 0-2 /HPF (0-5)
[2024-06-01] MEDS: ZOFRAN 4 MG IV (05:40)
[2024-06-01] MEDS: NSS 1000 IV ×3 (05:40→13:36)
[2024-06-01] MEDS: DILAUDID 0.5 MG IV (05:41)
[2024-06-01 05:52] LABS: Lactic Acid 2.7 mmol/L (0.7-2.0)
[2024-06-01 06:02] LABS: ALT (SGPT) 26 U/L (0-50); AST (SGOT) 48 U/L (17-59); Albumin 4.5 g/dl (3.5-5.0); Alkaline Phosphatase 71 U/L (38-126); Blood Urea Nitrogen 23 mg/dl (9-20); Calcium 9.6 mg/dl (8.4-10.2); Carbon Dioxide 24 mmol/L (22-30); Chloride 102 mmol/L (98-107); Glucose 192 mg/dl (70-99); Lipase 90 U/L (23-300); Potassium 4.9 mmol/L (3.5-5.1); Sodium 141 mmol/L (135-145); Total Bilirubin 1.3 mg/dl (0.2-1.3); Total Protein 8.2 g/dl (6.3-8.2); eGFR > 60.00
--- NOTE | 2024-06-01 08:00 | HPS.HSE ---
Family Physician
-
Family Physician: Mukul Lozoya
Chief Complaint
-
Abd pain
History of Present Illness
78M afib Eliquis HTN GERD Kidney Stones DM HLD Chronic Cholecystitis subtotal cholecystectomy Mar 2024 complicated w/ bile leak required ERCP stent placement, stent recently removed earlier this month May, p/w acute onset abd pain waking patient up
at midnight. Patient endorses being in his usual state of health prior to onset of symptoms. Pain severe associated with nausea vomiting diaphoresis and multiple loose bowel movements non-bloody. Pain symptoms have improved since arrival in ED
but persists fluctuating in severity colicky. RUQ abd pain/tenderness present. VSS afebrile. Lactic acidosis 2.7 but otherwise labs unremarkable , no leukocytosis, no LFT or Bilirubin elevations. CT concerning for possible acute infectious
cholangitis.
Medical History
Past Medical History
Past Medical History: Reports Other (as above)
Past Surgical History: Reports Other (as above)
Social History
Tobacco: Non-smoker
Alcohol: Occasional
Drug: None
Personal:
Living: With Family
Employment: Employed
Family History
Family History: Not pertinent (reviewed)
Allergies / Home Medications
Allergies reflects when Allergies were last updated in [facility].
Home Medications with original date entered in [facility]
Allergy/Medication List:
Allergies
Allergy/AdvReac Type Severity Reaction Status Date / Time
No Known Allergies Allergy Verified 06/01/24 08:13
Home Medications
potassium gluconate 600 mg (99 mg) tablet 99 mg PO HS Supplement 10/17/15
ascorbic acid (vitamin C) 1,000 mg tablet (Vitamin C) 2,000 mg PO DAILY Supplement 08/12/18
gmvexque-uwp-pnlou acid 0.4 mg-lycopene 300 mcg-lutein 250 mcg tablet (Centrum Silver) 1 ea PO DAILY Supplement 08/12/18
vitamin B complex 1 tab PO DAILY Supplement ##0 08/12/18
amlodipine 10 mg tablet 10 mg PO HS blood pressure 02/07/24
azelastine 137 mcg (0.1 %) nasal spray 1 spray intranasal BIDPRN PRN congestion 02/07/24
metoprolol succinate 25 mg tablet,extended release 24 hr 25 mg PO HS Blood Pressure 02/07/24
rosuvastatin 10 mg tablet 10 mg PO DAILY High Cholesterol 02/07/24
acetaminophen 500 mg tablet (Tylenol Extra Strength) 1,000 mg PO Q6HPRN PRN MILD pain 03/03/24
ascorbic acid 125 mg-collagen, hydrolyzed 740 mg capsule (Collagen Plus Vitamin C) 1 cap PO BID Supplement 03/03/24
calcium 333 mg (carbonate)-magnesium 133 mg (oxide)-zinc 5 mg tablet 1 tab PO DAILY Supplement ##0 03/03/24
famotidine 20 mg tablet 20 mg PO QPM Gastrointestinal Issue 03/03/24
glucosamine sulf dipot chlr,msm,chond 550 mg-C 30 mg-darya 1 mg capsule (Glucosamine Chondroitin) 1 cap PO DAILY Supplement 03/03/24
meloxicam 15 mg tablet 15 mg PO DAILY PRN pain 03/03/24
metformin 500 mg tablet 750 mg PO QPM diabetes 03/03/24
apixaban 5 mg tablet (Eliquis) 5 mg PO BID 06/01/24
coenzyme Q10 100 mg capsule (Co Q-10) 100 mg PO DAILY 06/01/24
losartan 100 mg-hydrochlorothiazide 25 mg tablet 1 tab PO DAILY 06/01/24
Review of Systems
-
A 12 point ROS was completed and negative except as noted: Yes
Constitutional: Reports Other (as below)
Physical Exam
Vital Signs
Vital Signs
Temp Pulse Resp BP Pulse Ox
97.9 F 89 19 156/88 94
06/01/24 04:34 06/01/24 07:15 06/01/24 07:15 06/01/24 07:08 06/01/24 07:08
Physical Exam
General: Other (as below)
Laboratory Results
-
06/01/24 05:12
06/01/24 05:12
Laboratory Results
Lactic Acid 2.7 mmol/L (0.7-2.0) H 06/01/24 05:12
Total Bilirubin 1.3 mg/dl (0.2-1.3) 06/01/24 05:12
AST 48 U/L (17-59) 06/01/24 05:12
ALT 26 U/L (0-50) 06/01/24 05:12
Alkaline Phosphatase 71 U/L (38-126) 06/01/24 05:12
Lipase 90 U/L (23-300) 06/01/24 05:12
Impression/Plan
-
ROS
General: Denies fever chills unexpected weight loss, reported night sweats/diaphoresis
Neuro: Denies seizure shaking loss of consciousness dizziness vertigo
Psych: denies depression hallucinations confusion manic episodes
Endocrine: Denies polyuria polydipsia polyphagia heat/cold intolerance
HEENT: Denies blindness visual disturbances epistaxis
Pulmonary: denies coughing hemoptysis sneezing sob dyspnea on exertion
Cardiovascular: denies chest pain palpitations leg swelling
Hematology: denies signs symptoms of anemia easy bruising/bleeding
Gastrointestinal: reported vomiting multiple loose stools colicky abd pain
Genito-Urinary: denies retention incontinence dysuria
Musculoskeletal: denies joint pain weakness
Dermatology: denies rash laceration bruising
Physical Exam
General: No pallor, cyanosis, or jaundice.
HEENT: Throat clear. PERRLA Normocephalic atraumatic
NECK: Supple. No JVD Carotid Bruits
RESPIRATORY: Lungs clear to auscultation. No crackles wheezes stridor
CVS: S1, S2 normal. RRR. No murmur, rub or gallop.
ABDOMEN: Soft, decreaseed bowel sounds RUQ abd tenderness
EXTREMITIES: No peripheral cyanosis or edema.
SOLUTION DIRECTOR: AOx3. No focal deficits.
IMPRESSION:
78M afib Eliquis HTN GERD Kidney Stones DM HLD Chronic Cholecystitis subtotal cholecystectomy Mar 2024 complicated w/ bile leak required ERCP stent placement, stent recently removed earlier this month May, p/w acute onset abd pain waking patient up
at midnight. Patient endorses being in his usual state of health prior to onset of symptoms. Pain severe associated with nausea vomiting diaphoresis and multiple loose bowel movements non-bloody. Pain symptoms have improved since arrival in ED
but persists fluctuating in severity colicky. RUQ abd pain/tenderness present. VSS afebrile. Lactic acidosis 2.7 but otherwise labs unremarkable , no leukocytosis, no LFT or Bilirubin elevations. CT concerning for possible acute infectious
cholangitis.
PLAN:
CT abd/pelvis appreciated as follows:
1. Mild amount of circumferential wall thickening in the extrahepatic bile ducts which appears new from 02/07/2024. Diagnostic possibilities are (1) acute infectious cholangitis or (2) inflammatory wall thickening from previous biliary
intervention (stent placement).
2. Mild wall thickening and hyperenhancement in the gallbladder fundus suggesting mild residual cholecystitis which has markedly decreased since 02/07/2024.
3. Mild diffuse hepatic steatosis.
4. Mild colonic wall thickening suspicious for a mild colitis.
5. Multiple bilateral nonobstructing intrarenal calculi.
6. Large number of bilateral renal cysts.
7. Mild colonic diverticulosis.
8. 2.2 cm right adrenal adenoma.
9. Grade 2 anterolisthesis of L5 on S1 secondary to bilateral L5 pars interarticularis spondylolysis.
10. 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
#Possible Acute Infectious Cholangitis vs Biliary Obstruction
#Hx chronic cholecystitis s/p subtotal cholecystectomy complicated with Bile Leak ERCP stent recently removed
Med/surg
bowel rest, NPO except meds, IVF support
pain control prn tylenol, IV dilaudid prn
GI Surgery Eval
cont empiric Zosyn
#Mild Lactic acidosis
likely d/t dehydration (vomiting, multiple bowel movements, and diaphoresis following onset of symptoms)
received IVF support, follow up repeat Lactic acid.
#afib
heart rate well controlled at this time
cont home metoprolol with holding parameters
hold Eliquis in case need for surgical procedure (last dose evening 05/31)
#HTN
cont home amlodipine metoprolol losartan with holding parameters
home HCTZ on hold while NPO
#Reported hx DM
most recent A1c indicates prediabetes 6.0
update A1c
hold home metformin while npo at this time
no need for routine fingersticks at this time.
I spent a total of 76 minutes with the patient or on the floor. More than 50% of this time involved counseling and coordination of care.
[2024-06-01] MEDS: DILAUDID 1 MG IV ×3 (08:05→16:24)
[2024-06-01] MEDS: ZOSYN 100 IV (08:05)
[2024-06-01] MEDS: TORADOL 15 MG IV (09:19)
[2024-06-01] MEDS: PROTONIX IV 40 MG IV (09:19)
[2024-06-01] MEDS: NSS (PRESERVATIVE FREE) 10 ML IV (09:19)
--- NOTE | 2024-06-01 10:41 | CON.GI ---
Addendum entered and electronically signed by Brigida Seymour MD 06/01/24 15:44:
I saw and examined the patient.
The DIAMOND WHEEL MOLDER or PA's note was reviewed and I agree with the note.
Comment: 78-year-old male with history of atrial fibrillation on Eliquis, history of recent acute cholecystitis February 2024, was supposed to get outpatient elective cholecystectomy, underwent laparoscopic subtotal cholecystectomy in March 2024 due to
dense fibrotic scar tissue. Postop developed bile leak, required ERCP with sphincterotomy and stent placement, early May he had stent removed. Since
after the procedure he reports that he was feeling fatigued and never felt normal but at midnight last night he woke up with intense pain in the mid abdomen/upper abdomen that was persistent and came to the emergency room. With his previous
cholecystitis he had more of a pressure than pain. In the ER, labs showed normal CBC, LFTs normal. CT scan of the abdomen pelvis with contrast today showing mild amount of circumferential wall thickening in the extrahepatic bile ducts new from
February. Mild wall thickening and hyperenhancement in the gallbladder fundus suggesting mild residual cholecystitis. Diffuse fatty liver noted and mild colonic wall thickening suggesting colitis.
-Upper abdominal pain with history of recent subtotal cholecystectomy with bile leak status post ERCP and stent placement with subsequent removal
LFTs in normal range but CT scan showing mild wall thickening and hyperenhancement of the gallbladder fundus and also mild circumferential wall thickening in the extrahepatic bile duct
Given normal LFTs, no urgent indication for ERCP.
As per surgery, plan is to get IR percutaneous cholecystostomy tube, if cholangiogram can be done, that would rule out any evidence of choledocholithiasis. Clinical concern is less given sphincterotomy.
Currently n.p.o.
Will follow-up on the IR procedure.
Currently on antibiotics.
-Mild colitis seen on CT
Monitor for any diarrhea and outpatient workup subsequently.
Original Note:
Consultation
-
Date/Time Consultation Requested: 06/01/24 3915
Date/Time Consultation Performed: 06/01/24 0455
Requesting Provider: Bretn Sinclair MD
Performing Provider: LINA Hook, Brigida Seymour MD
Reason for Consultation: abdominal pain
Medical History
Chief Complaint / HPI
Chief Complaint: abdominal pain, s/p subtotal CCY
History of Present Illness:
This is a 78 year old male with a past medical history of atrial fibrillation (on Eliquis prior to admission), HTN, kidney stones, GERD, who underwent laparoscopic subtotal cholecystectomy with noted multiple adhesions present and the gallbladder
was encased in dense fibrotic scar. 03/09/[address] Jackson. He was noted with Acute cholecystitis was noted on CT scan 02/07/24 with antibiotic treatment and patient was discharged at that time with plan for elective cholecystectomy. GI was
consulted post -op for bile leak. He completed ERCP with Dr. Lopez on 03/10 bile leak found and biliary tree swept with placement of plastic stent in CBD proximal end of cystic duct insertion. Pt returned 05/11 for stent removal with noted stent
was in duodenum with removal. He now returned with abdominal pain. On admission CBC normal, lactate 2.7 with LFT and lipase normal. CT with extrahepatic ductal dilation but comparison prior to michelle, concern for acute cholangitis or prior
stenting, residual cholecystitis decreased from 02/06 n mild colitis. Pt also noted with large number of b/l renal stone, diverticulosis and DDD.
And reviewed with patient, he states he was doing well post ERCP in early May. He began with abdominal pain around midnight that awoken him from sleep. He describes pain as severe initially in the lower abdomen and a feeling of 'fire in
his abdomen it was 10 out of 10. As time went on it did decrease to 6 out of 10 but he also developed some nausea vomiting bilious material. He also thought this may have been constipation related but did have a bowel movement initially solid then
some looser stools without blood. Since being in the ER he is feeling improved. He now rates his pain as 1-2 out of 10. He denies any associated dysphagia blood or black in the stool. He does admit to some chronic GERD on famotidine and some
variable stool pattern but no severe diarrhea or constipation.He does admit to some issues with weight loss since August he has lost about 30 pounds and in the last month he has gained back 4 pounds. No change in urine or stool color.
.
e.
Past Medical History
Past Medical History: Other (atrial fibrillation, HTN, kidney stones, GERD)
Past Surgical History: Appendectomy, Cholecystectomy (laparascopic subtotal cholecystectomy 03/09/24) and Orthopedic (knee)
Social History
Tobacco: Non-Smoker
Alcohol: None
Drug: None
Personal:
Living: With Family
Employment: Employed
Family History
Family History: Other (No family history of GI malignancies)
Allergies / Home Medications
Allergy/AdvReac Type Severity Reaction Status Date / Time
No Known Allergies Allergy Verified 06/01/24 08:13
�Medication �Instructions �Recorded
potassium gluconate 600 mg (99 mg) 99 mg PO HS Supplement 10/17/15
tablet
ascorbic acid (vitamin C) 1,000 mg 2,000 mg PO DAILY Supplement 08/12/18
tablet (Vitamin C)
btvfothw-rai-jkreo acid 0.4 1 ea PO DAILY Supplement 08/12/18
mg-lycopene 300 mcg-lutein 250 mcg
tablet (Centrum Silver)
vitamin B complex 1 tab PO DAILY Supplement ##0 08/12/18
amlodipine 10 mg tablet 10 mg PO HS blood pressure 02/07/24
azelastine 137 mcg (0.1 %) nasal 1 spray intranasal BIDPRN PRN 02/07/24
spray congestion
metoprolol succinate 25 mg 25 mg PO HS Blood Pressure 02/07/24
tablet,extended release 24 hr
rosuvastatin 10 mg tablet 10 mg PO DAILY High Cholesterol 02/07/24
acetaminophen 500 mg tablet 1,000 mg PO Q6HPRN PRN MILD pain 03/03/24
(Tylenol Extra Strength)
ascorbic acid 125 mg-collagen, 1 cap PO BID Supplement 03/03/24
hydrolyzed 740 mg capsule
(Collagen Plus Vitamin C)
calcium 333 mg 1 tab PO DAILY Supplement ##0 03/03/24
(carbonate)-magnesium 133 mg
(oxide)-zinc 5 mg tablet
famotidine 20 mg tablet 20 mg PO QPM Gastrointestinal Issue 03/03/24
glucosamine sulf dipot 1 cap PO DAILY Supplement 03/03/24
chlr,msm,chond 550 mg-C 30 mg-darya
1 mg capsule (Glucosamine
Chondroitin)
meloxicam 15 mg tablet 15 mg PO DAILY PRN pain 03/03/24
metformin 500 mg tablet 750 mg PO QPM diabetes 03/03/24
apixaban 5 mg tablet (Eliquis) 5 mg PO BID 06/01/24
coenzyme Q10 100 mg capsule (Co 100 mg PO DAILY 06/01/24
Q-10)
losartan 100 1 tab PO DAILY 06/01/24
mg-hydrochlorothiazide 25 mg tablet
Review of Systems
-
History Source: Patient
Constitutional: Reports No Symptoms and Weight Loss
EENT: Reports No Symptoms
Respiratory: Reports Trouble Breathing (at times)
Cardiac: Reports No Symptoms
Abdomen/GI: Reports Abdominal Pain, Nausea, Vomiting, Diarrhea and Constipated
: Reports No Symptoms
Musculoskeletal: Reports No Symptoms
Skin: Reports No Symptoms
Neurological: Reports Weakness
Endocrine: Reports No Symptoms
Hematologic/Lymphatic: Reports No Symptoms
Vital Signs
Temp Pulse Resp BP Pulse Ox
97.9 F 89 17 125/65 94
06/01/24 04:34 06/01/24 09:30 06/01/24 09:00 06/01/24 09:21 06/01/24 07:08
Physical Exam
Exam
General: Well Developed, Well Nourished and No Apparent Distress
HEENT: Normocephalic and Anicteric
Respiratory: Clear
Cardiac: Regular Rhythm
GI: Soft, Non Distended and Tender (minimal mid abdomen)
Skin: Warm and Dry
Neuro: Awake and Alert
Psych: Calm
Results
WBC 8.6 10^3/uL (4.8-10.8) 06/01/24 05:12
Hgb 15.3 g/dL (13.0-18.0) 06/01/24 05:12
Hct 45.8 % (39.0-52.0) 06/01/24 05:12
MCV 85.0 fL (80.0-94.0) 06/01/24 05:12
Plt Count 196 10^3/uL (130-400) 06/01/24 05:12
Absolute Neuts (auto) 6.4 10^3/uL (1.4-6.5) 06/01/24 05:12
Sodium 141 mmol/L (135-145) 06/01/24 05:12
Potassium 4.9 mmol/L (3.5-5.1) 06/01/24 05:12
Chloride 102 mmol/L (98-107) 06/01/24 05:12
Carbon Dioxide 24 mmol/L (22-30) 06/01/24 05:12
BUN 23 mg/dl (9-20) H 06/01/24 05:12
Creatinine 0.8 mg/dL (0.7-1.3) 06/01/24 05:12
Calcium 9.6 mg/dl (8.4-10.2) 06/01/24 05:12
Total Bilirubin 1.3 mg/dl (0.2-1.3) 06/01/24 05:12
AST 48 U/L (17-59) 06/01/24 05:12
ALT 26 U/L (0-50) 06/01/24 05:12
Alkaline Phosphatase 71 U/L (38-126) 06/01/24 05:12
Lipase 90 U/L (23-300) 06/01/24 05:12
Diagnostic Image Results:
CTa/p with IV cont
1. Mild amount of circumferential wall thickening in the extrahepatic bile ducts which appears new from 02/07/2024. Diagnostic possibilities are (1) acute infectious cholangitis or (2) inflammatory wall thickening from previous biliary
intervention (stent placement).
2. Mild wall thickening and hyperenhancement in the gallbladder fundus suggesting mild residual cholecystitis which has markedly decreased since 02/07/2024.
3. Mild diffuse hepatic steatosis.
4. Mild colonic wall thickening suspicious for a mild colitis.
5. Multiple bilateral nonobstructing intrarenal calculi.
6. Large number of bilateral renal cysts.
7. Mild colonic diverticulosis.
8. 2.2 cm right adrenal adenoma.
9. Grade 2 anterolisthesis of L5 on S1 secondary to bilateral L5 pars interarticularis spondylolysis.
10. 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
02/18/24 MRI without contrast
IMPRESSION: Ovoid gallstone at the junction of the body and neck of the gallbladder.
Significant gallbladder wall thickening involving the body and gallbladder fundus. Differential considerations of cholecystitis and/for gallbladder cancer, and there could be a combination of these processes.
There is no MR evidence for invasion of the gallbladder into the liver. The thickened gallbladder wall extends to the right anterolateral margin of the abdominal wall, there appears to be some thickening of the peritoneum adjacent to the
gallbladder. No evidence for invasion of the adjacent right anterolateral abdominal wall.
There are multiple hepatic lesions compatible with hepatic cysts. No convincing MR evidence for hepatic metastatic disease.
Right adrenal gland adenoma which is stable since examination of October 2015. Of note, imaging studies do not address the functional status of an adrenal mass. If there are clinical signs or symptoms of adrenal hyperfunction, biochemical testing may
be required to determine if the lesion is excreting excess hormone.
Prior GI Procedures:
Colonoscopy:
~2018, possibly showed a polyp (done elsewhere)
2011, Dr. Avila:
One 3 mm polyp in the rectum. Resected and retrieved. (Hyperplastic)
- The examination was otherwise normal.
03/10/24 ERCP [place] - The patient has had a subtotal fenestrated
cholecystectomy.
-- A bile leak was found.
- A biliary sphincterotomy was performed.
- The biliary tree was swept and nothing was found.
- One plastic stent was placed into the common bile
duct ( proximal end above the cystic duct insertion ) .
05/11/24 EGD - zach
- Normal esophagus.
- Normal stomach.
- Plastic biliary stent in the duodenum. Removed.
Assessment / Plan
-
This is a 78 year old male with a past medical history of atrial fibrillation (on Eliquis prior to admission), HTN, kidney stones, GERD, who underwent laparoscopic subtotal cholecystectomy with noted multiple adhesions present and the gallbladder
was encased in dense fibrotic scar. 03/09/[address] Jackson. He was noted with Acute cholecystitis was noted on CT scan 02/07/24 with antibiotic treatment and patient was discharged at that time with plan for elective cholecystectomy. GI was
consulted post -op for bile leak. He completed ERCP with Dr. Lopez on 03/10 bile leak found and biliary tree swept with placement of plastic stent in CBD proximal end of cystic duct insertion. Pt returned 05/11 for stent removal with noted stent
was in duodenum with removal. He now returned with abdominal pain. On admission CBC normal, lactate 2.7 with LFT and lipase normal. CT with extrahepatic ductal dilation but comparison prior to michelle, concern for acute cholangitis or prior
stenting, residual cholecystitis decreased from 02/06 n mild colitis. Pt also noted with large number of b/l renal stone, diverticulosis and DDD.
IMPRESSION / PLAN:
-sudden onset -abdominal pain -- lowet then upper abdominal pain
-extra hepatic biliary dilation post michelle, colitis, renal stones per CT
-H/o cholecystitis, s/p subtotal cholecystectomy 03/09/24
-Cystic duct leak s/p CBD Stent placement 03/10/24 (10 Fr 7 cm) -retrieval in duodenum 05/11
-elevated lactate
-recent wt loss
PLAN:
Etiology of abdominal pain related to biliary etiology though normal LFT's after acute onset, renal stone related as stable LFT and lipase on admissionvs other
will review CT with Dr. Seymour some biliary dilatation
if bump in LFT's consider MRI/MRCP
trend lactate for repeat at Noon
trend LFT's in AM
NPO
monitor pain -- pt with some improvement since admission
Eliquis hold
await surgical input
-
-
Thank you for consultation and allowing me to participate in the patient's care. Please call the expansion joint builder GI physician during the after hours with any questions or concerns.
--- NOTE | 2024-06-01 11:42 | CON.GS ---
Addendum entered and electronically signed by Morgan Doshi MD 06/01/24 12:47:
I saw and examined the patient independently.
The Doula's note was reviewed and I agree with the note, assessment and plan except where noted below.
Comment: This is a 78-year-old male with a history of A-fib on Eliquis last dose was yesterday evening, chronic cholecystitis status post robotic subtotal fenestrating cholecystectomy with notable dense fibrotic scar. The patient developed an
expected bile leak postoperatively and underwent an ERCP stenting on 03/10/2024. Subsequently both the drain and stent have been removed. He presents today with a 1 day history of right upper quadrant abdominal pain. Blood work reassuring however
he is tender to palpation in the right upper quadrant and CT imaging demonstrates a thickened gallbladder wall.
Will plan for a IR percutaneous cholecystostomy tube.
IV antibiotics
Hold therapeutic anticoagulation
okay for clear liquids.
General surgery will follow
Original Note:
Medical History
-
Chief Complaint: abdominal pain
History of Present Illness:
Mr. Sanz is a 78 yo male with a PMH of Afib on Eliquis with LD yesterday evening and chronic cholecystitis with RAL subtotal cholecystectomy as the gallbladder was encased in dense fibrotic scar with drain left in place for anticipated bile leak
with subsequent ERCP for stenting with Dr. Jackson on 03/09/24. Subsequently, both the drain and the stent have been removed. He presents this admission with abdominal pain. He denies nausea and vomiting. He has RUQ tenderness on exam. He denies fevers
or chills.
Past Medical History
Past Medical History: Arrhythmias (Afib on Eliquis LD 05/31/24 in the evening), GERD, HTN and Other (kidney stones)
Past Surgical History: Appendectomy, Cholecystectomy (RAL subtotal cholecystectomy 03/09/24) and Orthopedic (knee)
Social History
Tobacco: Non-Smoker
Alcohol: None
Personal:
Living: With Family
Family History
Family History: Reviewed & Not Pertinent
Allergies / Home Medications
Allergy/AdvReac Type Severity Reaction Status Date / Time
No Known Allergies Allergy Verified 06/01/24 08:13
�Medication �Instructions �Recorded �Confirmed �Type
potassium gluconate 600 mg (99 mg) 99 mg PO HS Supplement 10/17/15 06/01/24 History
tablet
ascorbic acid (vitamin C) 1,000 mg 2,000 mg PO DAILY Supplement 08/12/18 06/01/24 History
tablet (Vitamin C)
oufdcaul-xit-xkgxe acid 0.4 1 ea PO DAILY Supplement 08/12/18 06/01/24 History
mg-lycopene 300 mcg-lutein 250 mcg
tablet (Centrum Silver)
vitamin B complex 1 tab PO DAILY Supplement ##0 08/12/18 06/01/24 History
amlodipine 10 mg tablet 10 mg PO HS blood pressure 02/07/24 06/01/24 History
azelastine 137 mcg (0.1 %) nasal 1 spray intranasal BIDPRN PRN 02/07/24 06/01/24 History
spray congestion
metoprolol succinate 25 mg 25 mg PO HS Blood Pressure 02/07/24 06/01/24 History
tablet,extended release 24 hr
rosuvastatin 10 mg tablet 10 mg PO DAILY High Cholesterol 02/07/24 06/01/24 History
acetaminophen 500 mg tablet 1,000 mg PO Q6HPRN PRN MILD pain 03/03/24 06/01/24 History
(Tylenol Extra Strength)
ascorbic acid 125 mg-collagen, 1 cap PO BID Supplement 03/03/24 06/01/24 History
hydrolyzed 740 mg capsule
(Collagen Plus Vitamin C)
calcium 333 mg 1 tab PO DAILY Supplement ##0 03/03/24 06/01/24 History
(carbonate)-magnesium 133 mg
(oxide)-zinc 5 mg tablet
famotidine 20 mg tablet 20 mg PO QPM Gastrointestinal Issue 03/03/24 06/01/24 History
glucosamine sulf dipot 1 cap PO DAILY Supplement 03/03/24 06/01/24 History
chlr,msm,chond 550 mg-C 30 mg-darya
1 mg capsule (Glucosamine
Chondroitin)
meloxicam 15 mg tablet 15 mg PO DAILY PRN pain 03/03/24 06/01/24 History
metformin 500 mg tablet 750 mg PO QPM diabetes 03/03/24 06/01/24 History
apixaban 5 mg tablet (Eliquis) 5 mg PO BID 06/01/24 06/01/24 History
coenzyme Q10 100 mg capsule (Co 100 mg PO DAILY 06/01/24 06/01/24 History
Q-10)
losartan 100 1 tab PO DAILY 06/01/24 06/01/24 History
mg-hydrochlorothiazide 25 mg tablet
Review of Systems
-
History Source: Patient
All other systems: Negative unless noted
A 10 point review of systems was completed, and was negative except as per HPI.
Physical Exam
Vital Signs
Temp Pulse Resp BP Pulse Ox
97.9 F 84 0 138/71 94
06/01/24 04:34 06/01/24 11:36 06/01/24 11:00 06/01/24 11:36 06/01/24 07:08
05/31/24 06/01/24 06/02/24
06:59 06:59 06:59
Actual Weight 88.451 kg
Body Mass Index (BMI) 31.5
Lab Results
06/01/24 05:12
06/01/24 05:12
WBC 8.6 10^3/uL (4.8-10.8) 06/01/24 05:12
Hgb 15.3 g/dL (13.0-18.0) 06/01/24 05:12
Hct 45.8 % (39.0-52.0) 06/01/24 05:12
Plt Count 196 10^3/uL (130-400) 06/01/24 05:12
Abs Immat Gran (auto) 0.0 10^3/uL (0-0.05) 06/01/24 05:12
Neutrophils % 74.6 % (42.2-75.2) 06/01/24 05:12
Physical Exam
General: Well Developed and Well Nourished
HEENT: Moist Mucous Membranes
Respiratory: Non Labored Respirations
GI: Soft, Non Distended and Tender (JOY)
Skin: Warm and Dry
Neuro: Awake, Alert and AO x 3
Psych: Calm
Data Reviewed
-
CT Scan: Image Personally Visualized and interpreted, Report Reviewed by me, Discussed with Physician, Discussed with Patient and Discussed with Family
Labs: Labs Reviewed by me, Discussed with Physician and Discussed with Patient
Old Records: Reviewed
Assessment / Plan
-
78 yo male with a PMH of Afib on Eliquis with LD yesterday evening and chronic cholecystitis with RAL subtotal cholecystectomy as the gallbladder was encased in dense fibrotic scar with drain left in place for anticipated bile leak with subsequent
ERCP for stenting with Dr. Jackson on 03/09/24. Subsequently, both the drain and the stent have been removed. He presents this admission with abdominal pain with RUQ tenderness and evidence of recurrent cholecystitis on CT imaging. No fevers,
leukocytosis.
--GI following with us
--Hold Eliquis
--C/W abx
--Discussed with interventional radiology, will temporize patient with percutaneous cholecystostomy tube which will likely take place tomorrow after Eliquis washout
--Will likely need future open cholecystectomy
--Continue NPO
Medical management as per primary team
[2024-06-01 12:24] LABS: Lactic Acid 2.1 mmol/L (0.7-2.0)
[2024-06-01] MEDS: ZOSYN 50 IV ×2 (13:39→20:17)
[2024-06-01 14:32] LABS: Glycohemoglobin (HgbA1c) 6.7 % (4.0-5.6)
[2024-06-01] MEDS: COZAAR 100 MG PO (16:18)
--- NOTE | 2024-06-01 18:05 | PTCARENOTE ---
Received patient from ER AAOX3. Pt NPO with IVF infusing without difficulty. Spoke to Dr. Sinclair. Pt started on clear liquids. Pt will then be NPO after midnight for IR on 06/02/24. Pt complained of abdominal pain. Medicated with IV Dilaudid with
relief. Made patient comfortable. Cont to assess patient status.
[2024-06-01] MEDS: TOPROL XL 25 MG PO (20:17)
[2024-06-02] MEDS: NSS 1000 IV ×2 (00:34→11:03)
[2024-06-02] MEDS: ZOSYN 50 IV ×4 (02:44→21:41)
[2024-06-02 05:59] VITALS: BMI 32.8
[2024-06-02 07:35] VITALS: BP 134/66
--- NOTE | 2024-06-02 07:45 | W.PN.HOSP.TC ---
Today's Communication/Plan
-
resume diet low fat
discontinue IVF
cont abx for now
monitor
Assessment / Plan
Assessment / Plan
Physical Exam
General: No pallor, cyanosis, or jaundice.
HEENT: Throat clear. PERRLA Normocephalic atraumatic
NECK: Supple. No JVD Carotid Bruits
RESPIRATORY: Lungs clear to auscultation. No crackles wheezes stridor
CVS: S1, S2 normal. RRR. No murmur, rub or gallop.
ABDOMEN: Soft, RUQ abd tenderness significantly improved/near resolved
EXTREMITIES: No peripheral cyanosis or edema.
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 No focal deficits.
IMPRESSION:
78M afib Eliquis HTN GERD Kidney Stones DM HLD Chronic Cholecystitis subtotal cholecystectomy Mar 2024 complicated w/ bile leak required ERCP stent placement, stent recently removed earlier this month May, p/w acute onset abd pain waking patient up
at midnight. Patient endorses being in his usual state of health prior to onset of symptoms. Pain severe associated with nausea vomiting diaphoresis and multiple loose bowel movements non-bloody. Pain symptoms have improved since arrival in ED
but persists fluctuating in severity colicky. RUQ abd pain/tenderness present. VSS afebrile. Lactic acidosis 2.7 but otherwise labs unremarkable , no leukocytosis, no LFT or Bilirubin elevations. CT concerning for possible acute infectious
cholangitis.
PLAN:
CT abd/pelvis appreciated as follows:
1. Mild amount of circumferential wall thickening in the extrahepatic bile ducts which appears new from 02/07/2024. Diagnostic possibilities are (1) acute infectious cholangitis or (2) inflammatory wall thickening from previous biliary
intervention (stent placement).
2. Mild wall thickening and hyperenhancement in the gallbladder fundus suggesting mild residual cholecystitis which has markedly decreased since 02/07/2024.
3. Mild diffuse hepatic steatosis.
4. Mild colonic wall thickening suspicious for a mild colitis.
5. Multiple bilateral nonobstructing intrarenal calculi.
6. Large number of bilateral renal cysts.
7. Mild colonic diverticulosis.
8. 2.2 cm right adrenal adenoma.
9. Grade 2 anterolisthesis of L5 on S1 secondary to bilateral L5 pars interarticularis spondylolysis.
10. 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
#Possible Acute Infectious Cholangitis vs Transient Biliary Obstruction (more likely)
#Hx chronic cholecystitis s/p subtotal cholecystectomy complicated with Bile Leak ERCP stent recently removed
Med/surg
patient subsequently improved with bowel rest, NPO except meds, IVF support
pain control prn tylenol, IV dilaudid prn
GI Surgery IR Venu appreciated initially planned cholecystostomy tube placement canceled given significant clinical improvement
Diet since resumed low fat
cont empiric Zosyn
#Mild Lactic acidosis
likely d/t dehydration (vomiting, multiple bowel movements, and diaphoresis following onset of symptoms)
received IVF support, follow up repeat Lactic acid noted significant improvement
#afib
heart rate well controlled at this time
cont home metoprolol with holding parameters
hold Eliquis in case need for surgical procedure (last dose evening 05/31)
#HTN
cont home amlodipine metoprolol losartan with holding parameters
home HCTZ on hold while NPO
#Reported hx DM
most recent A1c indicates prediabetes 6.0
update A1c 6.8 diabetes but at goal <7
Metformin resumed
no need for routine fingersticks at this time.
I spent a total of 40 minutes with the patient or on the floor. More than 50% of this time involved counseling and coordination of care.
Anticipated Discharge: 24 - 48 hours
Subjective/Interval History
-
Date of Service: June 02, 2024
Patient symptomatically improved pain resolved eager to eat.
Objective Data
-
Labs:
Laboratory Results
06/02/24
06:58
WBC Pending
Hgb Pending
Hct Pending
Plt Count Pending
PT Pending
INR Pending
Sodium Pending
Potassium Pending
Chloride Pending
Carbon Dioxide Pending
BUN Pending
Creatinine Pending
Glucose Pending
Calcium Pending
Total Bilirubin Pending
AST Pending
ALT Pending
Alkaline Phosphatase Pending
Vital Signs:
Vital Signs
Temp Pulse Resp BP Pulse Ox
98.1 F 86 20 98/69 94
06/01/24 23:55 06/01/24 23:55 06/01/24 23:55 06/01/24 23:55 06/01/24 23:55
I&O
06/01/24 06/02/24 06/03/24
06:59 06:59 06:59
Intake Total 1860 / 1860
Output Total 900 / 900
Balance 960 / 960
[2024-06-02 08:15] LABS: INR 1.21; PT 15.2 Sec (11.4-14.6)
[2024-06-02 08:20] LABS: Hematocrit 39.5 % (39.0-52.0); Hemoglobin 13.1 g/dL (13.0-18.0); Mean Corp Hgb Conc. 33.2 g/dL (33.0-37.0); Mean Corpuscular Hgb 29.8 pg (27.0-31.0); Mean Platelet Volume 10.8 fL (7.4-10.4); Platelet Count 155 10^3/uL (130-400); Red Blood Cell Count 4.39 10^6/uL (4.70-6.10); Red Cell Dist. Width 14.6 % (11.5-14.5); White Blood Cell Count 6.1 10^3/uL (4.8-10.8)
[2024-06-02] MEDS: NSS (PRESERVATIVE FREE) 10 ML IV (08:40)
[2024-06-02] MEDS: PROTONIX IV 40 MG IV (08:41)
[2024-06-02] MEDS: COZAAR 100 MG PO (08:45)
[2024-06-02 08:54] LABS: ALT (SGPT) 20 U/L (0-50); AST (SGOT) 21 U/L (17-59); Albumin 3.1 g/dl (3.5-5.0); Alkaline Phosphatase 52 U/L (38-126); Blood Urea Nitrogen 14 mg/dl (9-20); Calcium 8.5 mg/dl (8.4-10.2); Carbon Dioxide 28 mmol/L (22-30); Chloride 103 mmol/L (98-107); Estimated Creatinine Clearance 82 ml/min; Glucose 123 mg/dl (70-99); Lipase 74 U/L (23-300); Sodium 141 mmol/L (135-145); Total Bilirubin 1.7 mg/dl (0.2-1.3); Total Protein 5.9 g/dl (6.3-8.2); eGFR > 60.00
--- NOTE | 2024-06-02 09:01 | W.PN.GS2 ---
Today's Communication / Plan
-
-- IR michelle tube
Assessment / Plan
-
Patient is a 78 yo M s/p laparoscopic subtotal cholecystectomy on 03/09/[address] Jackson. Patient presenting with recurrent abdominal discomfort and workup concerning for recurrent cholecystitis.
AVSS, Clinically stable
Bilirubin elevation noted
-- IR cholecystostomy tube placement
-- OK for LFD following procedure
-- Continue with abx coverage
-- Continue to hold therapeutic anticoagulation
Subjective Data
-
Date of Service: June 02, 2024
No worsening pain. No fevers or chills. No nausea or vomiting.
Objective Data
-
Intake and Output
06/01/24 06/02/24 06/03/24
06:59 06:59 06:59
Intake Total 1860 / 1860
Output Total 900 / 900
Balance 960 / 960
Intake:
Oral fluids 960 / 960
IV fluids (Total) 800 / 800
IV piggybacks 100 / 100
Output:
Urine, Voided 900 / 900
Other:
Number of approximated LARGE 2
amounts of urine
Vital Signs
Temp Pulse Resp BP Pulse Ox
98.1 F 86 20 140/68 94
06/01/24 23:55 06/01/24 23:55 06/01/24 23:55 06/02/24 08:45 06/01/24 23:55
Lab Results
06/02/24 06:58
06/02/24 06:58
Calcium 8.5 mg/dl (8.4-10.2) 06/02/24 06:58
Total Bilirubin 1.7 mg/dl (0.2-1.3) H 06/02/24 06:58
AST 21 U/L (17-59) 06/02/24 06:58
ALT 20 U/L (0-50) 06/02/24 06:58
Alkaline Phosphatase 52 U/L (38-126) 06/02/24 06:58
Total Protein 5.9 g/dl (6.3-8.2) L D 06/02/24 06:58
Albumin 3.1 g/dl (3.5-5.0) L 06/02/24 06:58
Physical Exam
-
Gen: NAD
Abd: soft, obese, NT/ND, non-peritoneal, prior incisions well healed
--- NOTE | 2024-06-02 14:46 | W.PN.UPDATE ---
Update Note
Progress Note Update
- IR consulted for possible michelle tube
- Imaging reviewed: recent CT shows mild residual wall thickening in the fundus with questionable thickening/enhancement of CBD. Suspect this could be related to prior episode of cholecystitis and CBD stenting. GB is not very distended.
- Pt non-toxic appearing, says that pain is significantly improved.
- Given above findings, tube placement may be difficult and not clinically beneficial at the moment. Discussed with surgery.
[2024-06-02 15:30] VITALS: BP 134/84
--- NOTE | 2024-06-02 18:12 | W.PN.GI.CBS2 ---
Today's Communication / Plan
-
Continue diet as per surgery
Assessment / Plan
-
This is a 78 year old male with a past medical history of atrial fibrillation (on Eliquis prior to admission), HTN, kidney stones, GERD, who underwent laparoscopic subtotal cholecystectomy with noted multiple adhesions present and the gallbladder
was encased in dense fibrotic scar. 03/09/[address] Jackson. He was noted with Acute cholecystitis was noted on CT scan 02/07/24 with antibiotic treatment and patient was discharged at that time with plan for elective cholecystectomy. GI was
consulted post -op for bile leak. He completed ERCP with Dr. Lopez on 03/10 bile leak found and biliary tree swept with placement of plastic stent in CBD proximal end of cystic duct insertion. Pt returned 05/11 for stent removal with noted stent
was in duodenum with removal. He now returned with abdominal pain. On admission CBC normal, lactate 2.7 with LFT and lipase normal. CT with extrahepatic ductal dilation but comparison prior to michelle, concern for acute cholangitis or prior
stenting, residual cholecystitis decreased from 02/06 n mild colitis. Pt also noted with large number of b/l renal stone, diverticulosis and DDD.
--Upper abdominal pain with history of recent subtotal cholecystectomy with bile leak status post ERCP and stent placement with subsequent removal
LFTs in normal range but CT scan showing mild wall thickening and hyperenhancement of the gallbladder fundus and also mild circumferential wall thickening in the extrahepatic bile duct
Surgical note reviewed. Patient was referred to IR for percutaneous cholecystostomy placement. Deferred by IR since clinically better and technically difficult
Advised on low-fat diet
Continue follow-up with surgery
No GI intervention at this point. Follow-up with GI as outpatient. Will sign off
Total Time Spent with Patient (in minutes): 35
Subjective
Subjective
Date of Service: June 02, 2024
Patient denies any abdominal pain today. Tolerating his meal in the evening. IR note reviewed-Per cholecystostomy tube deferred
Objective
Data Reviewed
Laboratory Data:
Laboratory Results
06/02/24 06:58
06/02/24 06:58
Laboratory Results
PT 15.2 Sec (11.4-14.6) H 06/02/24 06:58
INR 1.21 06/02/24 06:58
Total Bilirubin 1.7 mg/dl (0.2-1.3) H 06/02/24 06:58
AST 21 U/L (17-59) 06/02/24 06:58
ALT 20 U/L (0-50) 06/02/24 06:58
Alkaline Phosphatase 52 U/L (38-126) 06/02/24 06:58
Lipase 74 U/L (23-300) 06/02/24 06:58
Vital Signs and I&O:
Vital Signs
Temp Pulse Resp BP Pulse Ox
98.4 F 72 18 134/84 96
06/02/24 15:30 06/02/24 15:30 06/02/24 15:30 06/02/24 15:30 06/02/24 15:30
I&O
06/01/24 06/02/24 06/03/24
06:59 06:59 06:59
Intake Total 1860 / 1860 600 / 600
Output Total 900 / 900 700 / 700
Balance 960 / 960 -100 / -100
Physical Exam
Physical Exam
GI: Soft, Non Distended and Non Tender
[2024-06-02 18:53] LABS: Direct Bilirubin 0.2 mg/dl (0.0-0.4)
[2024-06-02] MEDS: TOPROL XL 25 MG PO (21:45)
[2024-06-02] MEDS: NSS IV (21:50)
[2024-06-02 23:00] VITALS: BP 117/74
[2024-06-03] MEDS: ZOSYN 50 IV ×3 (02:05→14:13)
[2024-06-03 06:00] VITALS: BMI 32.5
[2024-06-03 07:35] VITALS: BP 137/88
[2024-06-03 08:22] LABS: Hemoglobin 15.1 g/dL (13.0-18.0); Mean Corp Hgb Conc. 32.8 g/dL (33.0-37.0); Mean Corpuscular Hgb 29.7 pg (27.0-31.0); Mean Corpuscular Volume 90.4 fL (80.0-94.0); Mean Platelet Volume 10.7 fL (7.4-10.4); Platelet Count 177 10^3/uL (130-400); Red Blood Cell Count 5.09 10^6/uL (4.70-6.10); Red Cell Dist. Width 14.6 % (11.5-14.5); White Blood Cell Count 6.8 10^3/uL (4.8-10.8)
[2024-06-03] MEDS: NSS (PRESERVATIVE FREE) 10 ML IV (08:32)
[2024-06-03] MEDS: PROTONIX IV 40 MG IV (08:32)
[2024-06-03] MEDS: COZAAR PO ×2 (08:32→09:08)
[2024-06-03 09:01] LABS: ALT (SGPT) 22 U/L (0-50); AST (SGOT) 21 U/L (17-59); Albumin 3.9 g/dl (3.5-5.0); Alkaline Phosphatase 61 U/L (38-126); Blood Urea Nitrogen 10 mg/dl (9-20); Calcium 9.2 mg/dl (8.4-10.2); Carbon Dioxide 30 mmol/L (22-30); Chloride 100 mmol/L (98-107); Estimated Creatinine Clearance 82 ml/min; Glucose 131 mg/dl (70-99); Magnesium 1.8 mg/dl (1.6-2.3); Phosphorus 3.7 mg/dl (2.5-4.5); Sodium 143 mmol/L (135-145); Total Bilirubin 1.5 mg/dl (0.2-1.3); Total Protein 7.2 g/dl (6.3-8.2); eGFR > 60.00
--- NOTE | 2024-06-03 09:19 | W.PN.HOSP.TC ---
Addendum entered and electronically signed by Bryn Sinclair MD 06/05/24 07:48:
paroxysmal atrial fibrillation
Original Note:
Today's Communication/Plan
-
Discharge after Abd US
Assessment / Plan
Assessment / Plan
Physical Exam
General: No pallor, cyanosis, or jaundice.
HEENT: Throat clear. PERRLA Normocephalic atraumatic
NECK: Supple. No JVD Carotid Bruits
RESPIRATORY: Lungs clear to auscultation. No crackles wheezes stridor
CVS: S1, S2 normal. RRR. No murmur, rub or gallop.
ABDOMEN: Soft, RUQ abd tenderness significantly improved/near resolved
EXTREMITIES: No peripheral cyanosis or edema.
CRITICAL CARE UNIT MANAGER: AOx3. No focal deficits.
IMPRESSION:
78M afib Eliquis HTN GERD Kidney Stones DM HLD Chronic Cholecystitis subtotal cholecystectomy Mar 2024 complicated w/ bile leak required ERCP stent placement, stent recently removed earlier this month May, p/w acute onset abd pain waking patient up
at midnight. Patient endorses being in his usual state of health prior to onset of symptoms. Pain severe associated with nausea vomiting diaphoresis and multiple loose bowel movements non-bloody. Pain symptoms have improved since arrival in ED
but persists fluctuating in severity colicky. RUQ abd pain/tenderness present. VSS afebrile. Lactic acidosis 2.7 but otherwise labs unremarkable , no leukocytosis, no LFT or Bilirubin elevations. CT concerning for possible acute infectious
cholangitis.
PLAN:
CT abd/pelvis appreciated as follows:
1. Mild amount of circumferential wall thickening in the extrahepatic bile ducts which appears new from 02/07/2024. Diagnostic possibilities are (1) acute infectious cholangitis or (2) inflammatory wall thickening from previous biliary
intervention (stent placement).
2. Mild wall thickening and hyperenhancement in the gallbladder fundus suggesting mild residual cholecystitis which has markedly decreased since 02/07/2024.
3. Mild diffuse hepatic steatosis.
4. Mild colonic wall thickening suspicious for a mild colitis.
5. Multiple bilateral nonobstructing intrarenal calculi.
6. Large number of bilateral renal cysts.
7. Mild colonic diverticulosis.
8. 2.2 cm right adrenal adenoma.
9. Grade 2 anterolisthesis of L5 on S1 secondary to bilateral L5 pars interarticularis spondylolysis.
10. 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
#Possible Acute Infectious Cholangitis (less likely) vs Transient Biliary Obstruction (more likely)
#Hx chronic cholecystitis s/p subtotal cholecystectomy complicated with Bile Leak ERCP stent recently removed
Med/surg
patient subsequently improved with bowel rest, NPO except meds, IVF support
pain control prn tylenol, IV dilaudid prn
GI Surgery ESSENCE Lea appreciated initially planned cholecystostomy tube placement canceled given significant clinical improvement
Diet since resumed low fat tolerating
empiric Zosyn switched to Augmentin plan for total 7 day course 06/01/24-06/07/24
06/03 Discussed with Surgery, patient cleared to be discharged, Abd US to be obtained prior to discharge to evaluate for possible new stones, No need to hold discharge for results (can be followed up outpatient).
#Mild Lactic acidosis
likely d/t dehydration (vomiting, multiple bowel movements, and diaphoresis following onset of symptoms)
received IVF support, follow up repeat Lactic acid noted significant improvement
#afib
heart rate well controlled at this time
cont home metoprolol with holding parameters
Eliquis held for possible need surgical procedure cleared to resume
#HTN
cont home amlodipine metoprolol losartan with holding parameters
home HCTZ ok to resume on discharge
#Reported hx DM
most recent A1c indicates prediabetes 6.0
update A1c 6.8 diabetes but at goal <7
Metformin resumed
no need for routine fingersticks at this time.
Medically stable for discharge home with outpatient follow up recommendations.
Total Time Preparing Discharge ___40____ minutes including examination of the patient, summary of the hospital stay, instructions for continuing care to all relevant caregivers; and preparation of discharge records, prescriptions, and referral
forms if necessary.
Anticipated Discharge: Today
Subjective/Interval History
-
Date of Service: June 03, 2024
Seen and examined at bedside in no acute distress ambulating without issues. Overall reports feeling well tolerating diet. Denies new acute issues. Eager to go home.
Objective Data
-
Labs:
Laboratory Results
06/03/24
07:34
WBC 6.8
Hgb 15.1
Hct 46.0
Plt Count 177
Sodium 143
Potassium 4.0
Chloride 100
Carbon Dioxide 30
BUN 10
Creatinine 0.8
Glucose 131 H
Calcium 9.2
Total Bilirubin 1.5 H
AST 21
ALT 22
Alkaline Phosphatase 61
Vital Signs:
Vital Signs
Temp Pulse Resp BP Pulse Ox
97.9 F 85 18 137/88 98
06/03/24 07:35 06/03/24 07:35 06/03/24 07:35 06/03/24 07:35 06/03/24 07:35
I&O
06/02/24 06/03/24 06/04/24
06:59 06:59 06:59
Intake Total 1860 / 1860 600 / 600
Output Total 900 / 900 1300 / 1300
Balance 960 / 960 -700 / -700
--- NOTE | 2024-06-03 09:41 | W.PN.GS2 ---
Today's Communication / Plan
-
US
Assessment / Plan
-
Patient is a 78 yo M s/p laparoscopic subtotal cholecystectomy on 03/09/[address] Jackson. Patient presenting with recurrent abdominal discomfort and workup concerning for recurrent cholecystitis.
AVSS, Clinically resolved
Bilirubin elevation noted, isolated Tbili elevation ioana 2/2 ochoaberts
No evidence of gallstones on imaging thus far
-- US abdomen to rule out new stones
-- Cont LFD
-- Continue with abx coverage
-- OK to restart AC
-- Tentatively for DC later today
Subjective Data
-
Date of Service: June 03, 2024
AFVSS, no complaints, denies abd tom, mg diet, ambulating
Objective Data
-
Intake and Output
06/02/24 06/03/24 06/04/24
06:59 06:59 06:59
Intake Total 1860 / 1860 600 / 600
Output Total 900 / 900 1300 / 1300
Balance 960 / 960 -700 / -700
Intake:
Oral fluids 960 / 960 600 / 600
IV fluids (Total) 800 / 800
IV piggybacks 100 / 100
Output:
Urine, Voided 900 / 900 1300 / 1300
Other:
Number of approximated LARGE 2
amounts of urine
Vital Signs
Temp Pulse Resp BP Pulse Ox
97.9 F 85 18 137/88 98
06/03/24 07:35 06/03/24 07:35 06/03/24 07:35 06/03/24 07:35 06/03/24 07:35
Lab Results
06/03/24 07:34
06/03/24 07:34
Calcium 9.2 mg/dl (8.4-10.2) 06/03/24 07:34
Phosphorus 3.7 mg/dl (2.5-4.5) 06/03/24 07:34
Magnesium 1.8 mg/dl (1.6-2.3) 06/03/24 07:34
Total Bilirubin 1.5 mg/dl (0.2-1.3) H 06/03/24 07:34
Direct Bilirubin 0.2 mg/dl (0.0-0.4) 06/02/24 06:58
AST 21 U/L (17-59) 06/03/24 07:34
ALT 22 U/L (0-50) 06/03/24 07:34
Alkaline Phosphatase 61 U/L (38-126) 06/03/24 07:34
Total Protein 7.2 g/dl (6.3-8.2) D 06/03/24 07:34
Albumin 3.9 g/dl (3.5-5.0) 06/03/24 07:34
Physical Exam
-
Gen: NAD
Abd: soft, nt, nd
[2024-06-03 15:00] VITALS: BP 168/89
--- NOTE | 2024-06-03 16:14 | W.DCSUMMARY ---
Discharge Summary
Discharge Data
Date of Admission: 06/01/24
Date of Discharge: 06/03/24
-
Pending Results: Yes
Additional Pending Results:
Abd US results to be followed up with Surgeon
Discharge Plan
-
Patient Disposition: Home (Routine Discharge)
Discharge Diagnosis/Procedures: Possible Acute Infectious Cholangitis (less likely) vs Transient Biliary Obstruction (more likely) vs Recurrence Cholecystitis (also possible)
atrial fibrillation
Hypertension
Diabetes well controlled
Condition: Good
Diet: Low Fat, Low Cholesterol and Diabetic, Carb Controlled
Activity: As tolerated
Driving Restrictions: As prior to admission
Bathing Restrictions: None
Activity Restrictions/Additional Instructions:
Please follow up with your primary care provider in 1 week of discharge and your surgeon in 2-4 weeks of discharge.
Augmentin has been prescribed for possible recurrence cholecystitis to continue through Jun 07, 2024.
Please take medications as prescribed/ recommended and follow up with primary care provider and/or other healthcare provider involved in your care for refills and/or further adjustment to your medication regimen as necessary.
Referrals:
Mukul Lozoya MD [Family Provider] - in one week
Aristeo Jackson MD [Active] - in two to four weeks
Prescriptions:
New
amoxicillin-pot clavulanate 875-125 mg Tablet
1 tab PO Q12 Qty: 9 0RF
Rx Instructions:
Last day of antibiotics for possible cholecystitis recurrence 06/07/24
Continued
potassium gluconate 99 MG tablet
99 mg PO HS
ascorbic acid (vitamin C) [Vitamin C] 1,000 MG tablet
2,000 mg PO DAILY
vitamin B complex Tablet Extended Release
1 tab PO DAILY Qty: 0
Centrum Silver 1 EACH tablet
1 ea PO DAILY
azelastine 137 mcg (0.1 %) spray,non-aerosol
1 spray INTRANASAL BIDPRN PRN (Reason: congestion)
rosuvastatin 10 mg tablet
10 mg PO DAILY
amlodipine 10 MG tablet
10 mg PO HS
metoprolol succinate 25 MG tablet extended release 24 hr
25 mg PO HS
metformin 500 mg Tablet
750 mg PO QPM
Rx Instructions:
Takes 1 1/2 tablets with dinner
meloxicam 15 mg Tablet
15 mg PO DAILY PRN (Reason: pain)
acetaminophen [Tylenol Extra Strength] 500 mg Tablet
1,000 mg PO Q6HPRN PRN (Reason: MILD pain)
Collagen Plus Vitamin C 125-740 mg Capsule
1 cap PO BID
Glucosamine Chondroitin 550-30-1 mg Capsule
1 cap PO DAILY
famotidine 20 mg Tablet
20 mg PO QPM
calcium carb-mag ox-zinc gluc 333-133-5 mg Tablet
1 tab PO DAILY Qty: 0
coenzyme Q10 [Co Q-10] 100 mg Capsule
100 mg PO DAILY
losartan-hydrochlorothiazide 100-25 mg Tablet
1 tab PO DAILY
Eliquis 5 mg Tablet
5 mg PO BID
Discharge Orders:
Discharge Patient (As Directed); Ordered 06/03/24
Ordered By: Bryn Sinclair
Discharge Date and Time
Print Language: ALGERIAN
--- NOTE | 2024-06-03 16:43 | CM ---
CM met with Yusuf at bedside
He lives in a ranch style home with 2 entry steps.
Independent, driving
DME: cane, crutches, rolling walker
No history of SNF or VN
PCP: Dr Mukul Ventura
Pharm: [facility] in [place]
Plan: D/C to home with no needs
--- NOTE | 2024-06-04 10:37 | PN.CDI ---
CDI
- -
CDI:
Physician Documentation Request
Admit Date: 06/01/24 12:08
Dear Doctor Dottie,
Patient H&P and progress notes include a diagnosis of atrial fibrillation.
Eliquis was held during hospitalization.
Confirmed EKG 06/01 shows afib.
Please provide further specificity regarding atrial fibrillation:
Paroxysmal atrial fibrillation - terminates spontaneously or with intervention within 7 days of onset
Persistent atrial fibrillation - episodes of continuous AF that last more than 7 days and do not self-terminate
Permanent atrial fibrillation - when a decision has been made to accept the presence of AF and there is no further attempt to restore or maintain sinus rhythm
Other - please specify
Use of terms such as suspected, likely, concern for, or probable (associated with a specific diagnosis that is being evaluated, monitored, or treated as if it exists) are acceptable and can be coded in the inpatient setting, when documented at the
time of discharge.
Thank you,
Zhane Reyes RN, BSN
CDI Specialist
tiger text
Please use your independent medical judgment in providing your response.
== END 2024-06-03 17:35 | disposition home or self-care (01) | DRG 444 ==
LOC: 4 EAST ACU 12:08
PROVIDERS: Nurse Practitioner Adult Health; Radiology Vascular & Interventional Radiology; ADMITTING PHYSICIAN Internal Medicine; CONSULT PHYSICIAN Internal Medicine Gastroenterology; CONSULT PHYSICIAN Surgery; EMERGENCY PHYSICIAN Emergency Medicine; FAMILY PHYSICIAN Family Medicine
DX: K83.09 Other cholangitis (principal); K83.1 Obstruction of bile duct; E87.20 Acidosis, unspecified; I10 Essential (primary) hypertension; E78.00 Pure hypercholesterolemia, unspecified; I48.0 Paroxysmal atrial fibrillation; K21.9 Gastro-esophageal reflux disease without esophagitis; E86.0 Dehydration; R73.03 Prediabetes; K76.0 Fatty (change of) liver, not elsewhere classified; N28.1 Cyst of kidney, acquired; K81.9 Cholecystitis, unspecified; Z90.49 Acquired absence of other specified parts of digestive tract; Z79.899 Other long term (current) drug therapy; Z79.84 Long term (current) use of oral hypoglycemic drugs; Z79.01 Long term (current) use of anticoagulants
CPT/HCPCS: 74177; 76705; 80053; 81003; 81015; 82248; 83036; 83605; 83690; 83735; 84100; 85025; 85027; 85610; 93005; 96365; 96375; 96376; 99285; Q9967

== ENCOUNTER → 2024-06-11 12:00 | Outpatient (REF) | payer OTHER, SELFPAY | LOC: DHSLP 12:00 | PROVIDERS: ATTENDING PHYSICIAN Internal Medicine Cardiovascular Disease; FAMILY PHYSICIAN Family Medicine | DX: G47.33 Obstructive sleep apnea (adult) (pediatric) (principal); R09.02 Hypoxemia | CPT/HCPCS: 95800 ==

== ENCOUNTER 2025-05-31 07:36 | Outpatient (RCR) | payer OTHER, SELFPAY | END 2025-05-31 23:59 | disposition home or self-care (01) | LOC: RPT 07:36 | PROVIDERS: ATTENDING PHYSICIAN Family Medicine | DX: M75.101 Unspecified rotator cuff tear or rupture of right shoulder, not specified as traumatic (principal); Z73.6 Limitation of activities due to disability | CPT/HCPCS: 97010; 97110; 97162 ==

== ENCOUNTER 2025-06-14 10:18 | Outpatient (RCR) | payer OTHER, SELFPAY | END 2025-06-15 05:57 | disposition home or self-care (01) | LOC: RPT 10:18 | PROVIDERS: ATTENDING PHYSICIAN Family Medicine | DX: M75.101 Unspecified rotator cuff tear or rupture of right shoulder, not specified as traumatic (principal); Z73.6 Limitation of activities due to disability | CPT/HCPCS: 97010; 97110 ==